=== PATIENT | female | born 1975 | race Caucasian/White ===

== ENCOUNTER → 2019-08-24 13:06 | Outpatient (BNVA) | payer OTHER, SELFPAY | PROVIDERS: Referring Provider Nurse Practitioner; Visit Provider Podiatrist Foot & Ankle Surgery | DX: M72.2 Plantar fascial fibromatosis (principal) | CPT/HCPCS: 73630; 77077 ==

== ENCOUNTER 2019-09-09 10:25 | Outpatient (CLI) | payer OTHER, SELFPAY ==
--- NOTE | 2019-09-09 10:36 | US_ITS ---
WS: [id number] ULTRASOUND SOFT TISSUES LEFT foot HISTORY: COX'S NEUROMA COMPARISON: None available. TECHNIQUE: 2-D and color Doppler imaging is submitted. Ultrasound is directed to the plantar surface of the foot between the metatarsal heads. Compression i s utilized. Hypoechoic mass measuring 4.0 x 1.8 mm along the plantar surface of the foot. This is external to the joint space between the third and fourth metatarsal heads. There is no compression or vascularity. T his appears more superficial than expected for Cox's neuroma. Also patient did not complain of erick n consistently at this location with transducer pressure or manual compression. US/US soft tissue/extremity [id number] IMPRESSION: Hypoechoic mass between the third and fourth metatarsal heads. Appears very sup erficial to be associated with the interdigital nerve. Also pain was not elicit ed with compression of this nodule. Suspect this could be an area of fibrosis. If not this is an atypical peripheral position for a neuroma.
== END 2019-09-09 10:26 | disposition home or self-care (01) ==
LOC: RAD 10:28
PROVIDERS: PCP Nurse Practitioner; Visit Provider Podiatrist Foot & Ankle Surgery
DX: G57.62 Lesion of plantar nerve, left lower limb (principal)
CPT/HCPCS: 76882

== ENCOUNTER → 2019-11-11 15:12 | Outpatient (BNVA) | payer OTHER, SELFPAY | PROVIDERS: PCP Nurse Practitioner; Visit Provider Family Medicine | DX: S82.64XA Nondisplaced fracture of lateral malleolus of right fibula, initial encounter for closed fracture (principal); X58.XXXA Exposure to other specified factors, initial encounter | CPT/HCPCS: 73610 ==

== ENCOUNTER → 2019-11-18 08:27 | Outpatient (BNVA) | payer OTHER, SELFPAY | PROVIDERS: PCP Nurse Practitioner; Referring Provider Nurse Practitioner; Visit Provider Podiatrist Foot & Ankle Surgery | DX: S82.401A Unspecified fracture of shaft of right fibula, initial encounter for closed fracture (principal); X58.XXXA Exposure to other specified factors, initial encounter | CPT/HCPCS: 73610 ==

== ENCOUNTER → 2019-12-15 14:12 | Outpatient (BNVA) | payer OTHER, SELFPAY | PROVIDERS: PCP Nurse Practitioner; Visit Provider Podiatrist Foot & Ankle Surgery | DX: S82.401A Unspecified fracture of shaft of right fibula, initial encounter for closed fracture (principal); M25.571 Pain in right ankle and joints of right foot; X58.XXXA Exposure to other specified factors, initial encounter | CPT/HCPCS: 73610 ==

== ENCOUNTER 2019-12-15 15:23 | Outpatient (CLI) | payer OTHER, SELFPAY | END 2019-12-15 15:24 | disposition home or self-care (01) | LOC: SPT 15:24 | PROVIDERS: PCP Nurse Practitioner; Visit Provider Podiatrist Foot & Ankle Surgery | DX: Z46.89 Encounter for fitting and adjustment of other specified devices (principal); S82.891D Other fracture of right lower leg, subsequent encounter for closed fracture with routine healing; X58.XXXD Exposure to other specified factors, subsequent encounter | CPT/HCPCS: L1902 ==

== ENCOUNTER → 2020-01-05 13:34 | Outpatient (BNVA) | payer OTHER, SELFPAY | PROVIDERS: PCP Nurse Practitioner; Visit Provider Podiatrist Foot & Ankle Surgery | DX: S82.401A Unspecified fracture of shaft of right fibula, initial encounter for closed fracture (principal); X58.XXXA Exposure to other specified factors, initial encounter | CPT/HCPCS: 73610 ==

== ENCOUNTER → 2020-02-03 11:13 | Outpatient (BNVA) | payer OTHER, SELFPAY | PROVIDERS: PCP Nurse Practitioner; Visit Provider Podiatrist Foot & Ankle Surgery | DX: S99.911A Unspecified injury of right ankle, initial encounter (principal); X58.XXXA Exposure to other specified factors, initial encounter | CPT/HCPCS: 73610 ==

== ENCOUNTER 2020-02-05 07:58 | Outpatient (CLI) | payer OTHER, SELFPAY ==
--- NOTE | 2020-02-05 14:24 | PFTS_ITS ---
Date of Study:02/05/20 Date of Dictation: MECHANICS: Forced vital capacity (FVC) is normal. Forced expiratory volume in one second (FEV1) is normal. FEV1/FVC is normal. FLOW VOLUME LOOP: Mild scooping likely secondary to small airways disease. LUNG VOLUMES: Total lung capacity (TLC) is normal. Residual volume (RV) is elevated. DIFFUSING CAPACITY FOR CARBON MONOXIDE: Normal. INTERPRETATION: The pulmonary function tests are normal. There is no significant postbronchodilator response. The flow volume loop is consistent with small airways disease. The lung volumes are consistent with air trapping. Gas exchange (DLCO) is normal. MTDD
--- NOTE | 2020-02-05 14:34 | PFTS_ITS ---
Date of Study:02/16/20 Date of Dictation: MECHANICS: Forced vital capacity (FVC) is normal. Forced expiratory volume in one second (FEV1) is normal. FEV1/FVC is normal. FLOW VOLUME LOOP: Mild scooping patient at lower lung volumes LUNG VOLUMES: Total lung capacity (TLC) is normal. Residual volume (RV) is increased. DIFFUSING CAPACITY FOR CARBON MONOXIDE: Normal. INTERPRETATION: The pulmonary function tests are normal. There was improvement in postbronchodilator spirometry with complete normalization of the FEV1. However, this did not reach steady state of significance. The total lung capacity is normal, there is elevation of residual volume likely secondary to small airways disease. Gas exchange (DLCO) is normal. MTDD
== END 2020-02-05 07:59 | disposition home or self-care (01) ==
PROVIDERS: PCP Nurse Practitioner; Visit Provider Internal Medicine Critical Care Medicine
DX: J45.909 Unspecified asthma, uncomplicated (principal)
CPT/HCPCS: 94060; 94726; 94729; J7611

== ENCOUNTER → 2020-03-08 13:26 | Outpatient (BNVA) | payer OTHER, SELFPAY | PROVIDERS: PCP Nurse Practitioner; Visit Provider Podiatrist Foot & Ankle Surgery | DX: M25.571 Pain in right ankle and joints of right foot (principal); S82.401A Unspecified fracture of shaft of right fibula, initial encounter for closed fracture; S82.891A Other fracture of right lower leg, initial encounter for closed fracture | CPT/HCPCS: 73610 ==

== ENCOUNTER → 2020-03-22 15:12 | Outpatient (BNVA) | payer OTHER, SELFPAY | PROVIDERS: PCP Nurse Practitioner; Visit Provider Podiatrist Foot & Ankle Surgery | DX: S99.912A Unspecified injury of left ankle, initial encounter (principal) | CPT/HCPCS: 73610 ==

== ENCOUNTER 2020-04-05 10:25 | Outpatient (CLI) | payer OTHER, SELFPAY ==
--- NOTE | 2020-04-05 10:37 | XRR_ITS ---
PROCEDURE INFORMATION: Exam: XR Right Knee Exam date and time: 04/05/2020 10:51 AM Age: 44 years old Clinical indication: Condition or disease; Arthritis; Type not specified; Knee; Right TECHNIQUE: Imaging protocol: XR Right knee. Views: 3 views. COMPARISON: No relevant prior studies available. FINDINGS: Bones/joints: No acute osseous pathology. Anatomic alignment. Soft tissues: Unremarkable. XR/XR knee RT 3V* [id number] IMPRESSION: No acute osseous pathology.
== END 2020-04-05 10:26 | disposition home or self-care (01) ==
LOC: RAD 10:28
PROVIDERS: PCP Nurse Practitioner; Visit Provider Orthopaedic Surgery
DX: M13.861 Other specified arthritis, right knee (principal)
CPT/HCPCS: 73562

== ENCOUNTER → 2020-04-06 14:18 | Outpatient (BNVA) | payer OTHER, SELFPAY | PROVIDERS: PCP Nurse Practitioner; Visit Provider Podiatrist Foot & Ankle Surgery | DX: S82.891A Other fracture of right lower leg, initial encounter for closed fracture (principal); S82.401A Unspecified fracture of shaft of right fibula, initial encounter for closed fracture; M25.571 Pain in right ankle and joints of right foot; S82.891D Other fracture of right lower leg, subsequent encounter for closed fracture with routine healing; S82.891G Other fracture of right lower leg, subsequent encounter for closed fracture with delayed healing | CPT/HCPCS: 73610 ==

== ENCOUNTER → 2020-06-02 14:43 | Outpatient (BNVA) | payer OTHER, SELFPAY | PROVIDERS: PCP Nurse Practitioner; Visit Provider Podiatrist Foot & Ankle Surgery | DX: S82.401A Unspecified fracture of shaft of right fibula, initial encounter for closed fracture (principal); M25.571 Pain in right ankle and joints of right foot; S82.891A Other fracture of right lower leg, initial encounter for closed fracture; S82.891D Other fracture of right lower leg, subsequent encounter for closed fracture with routine healing; S82.891G Other fracture of right lower leg, subsequent encounter for closed fracture with delayed healing; T14.8XXA Other injury of unspecified body region, initial encounter | CPT/HCPCS: 73610 ==

== ENCOUNTER 2020-06-15 06:00 | Outpatient (RCR) | payer OTHER, SELFPAY | END 2020-07-04 23:59 | disposition home or self-care (01) | LOC: GPT 06:00 | PROVIDERS: PCP Nurse Practitioner; Referring Provider Podiatrist Foot & Ankle Surgery; Visit Provider Podiatrist Foot & Ankle Surgery | DX: S82.402D Unspecified fracture of shaft of left fibula, subsequent encounter for closed fracture with routine healing (principal); X58.XXXD Exposure to other specified factors, subsequent encounter | CPT/HCPCS: 97110; 97112; 97116; 97140; 97161; 97530; 97760 ==

== ENCOUNTER 2020-07-05 06:00 | Outpatient (RCR) | payer OTHER, SELFPAY | END 2020-08-04 23:59 | disposition home or self-care (01) | LOC: GPT 06:00 | PROVIDERS: PCP Nurse Practitioner; Referring Provider Podiatrist Foot & Ankle Surgery; Visit Provider Podiatrist Foot & Ankle Surgery | DX: S82.402D Unspecified fracture of shaft of left fibula, subsequent encounter for closed fracture with routine healing (principal); X58.XXXD Exposure to other specified factors, subsequent encounter | CPT/HCPCS: 97110; 97112; 97760 ==

== ENCOUNTER 2020-07-22 13:14 | Outpatient (CLI) | payer OTHER, SELFPAY ==
--- NOTE | 2020-07-22 13:27 | XR_ITS ---
WS: [id number] Bone mineral density performed on a OQVestir, 07/22/2020 Clinical data: FREQUENT FRACTURES Findings: The first 4 lumbar vertebral bodies demonstrated the bone mineral density of 1.056 g/cm2 for a young adult T score of -1.0. Measurement of the left hip reveals a bone mineral density of 0.916 g/cm2 with a young adult T score of -0.7. Measurement of the right hip reveals the bone mineral density of 0.937 g/cm2 for young adult T score of -0.6. XR/XR DEXA axial skeleton* [id number] Impression: The bone mineral density of the lumbar spine and both hips is normal.
== END 2020-07-22 13:15 | disposition home or self-care (01) ==
LOC: RADWPI 13:18
PROVIDERS: PCP Nurse Practitioner; Visit Provider Nurse Practitioner
DX: Z01.89 Encounter for other specified special examinations (principal)
CPT/HCPCS: 77080

== ENCOUNTER 2020-08-05 06:00 | Outpatient (RCR) | payer OTHER, SELFPAY | END 2020-09-04 23:59 | disposition home or self-care (01) | LOC: GPT 06:00 | PROVIDERS: PCP Nurse Practitioner; Referring Provider Podiatrist Foot & Ankle Surgery; Visit Provider Podiatrist Foot & Ankle Surgery | DX: S82.402D Unspecified fracture of shaft of left fibula, subsequent encounter for closed fracture with routine healing (principal); X58.XXXD Exposure to other specified factors, subsequent encounter; M76.72 Peroneal tendinitis, left leg | CPT/HCPCS: 97110; 97112 ==

== ENCOUNTER 2020-08-10 16:05 | Outpatient (CLI) | payer OTHER, SELFPAY ==
[2020-08-10 16:38] LABS: Basophils % 0.4 %; Eosinophils # 0.1 10^3/uL (0.0-0.8); Eosinophils % 2.2 %; Hematocrit 38.8 % (37.0-47.0); Hemoglobin 12.3 g/dL (11.5-15.3); Lymphocytes % 41.4 %; Mean Corpuscular HGB Conc 31.7 g/dL (30.0-36.0); Mean Corpuscular Hemoglobin 29.8 pg (28.0-34.0); Mean Corpuscular Volume 93.9 fL (81-99); Mean Platelet Volume 9.9 fL (7.4-10.4); Monocytes # 0.4 10^3/uL (0.2-0.9); Monocytes % 7.8 %; Neutrophils # 2.35 10^3/uL (1.8-7.7); Nucleated Red Blood Cells % 0 %; Platelet Count 284 10^3/cmm (130-400); Red Blood Count 4.13 10^6/uL (4.1-5.3); White Blood Count 4.9 10^3/uL (4.0-10.0)
== END 2020-08-10 16:06 | disposition home or self-care (01) ==
PROVIDERS: Internal Medicine Critical Care Medicine; PCP Nurse Practitioner; Visit Provider Orthopaedic Surgery
DX: J45.909 Unspecified asthma, uncomplicated (principal)
CPT/HCPCS: 85025

== ENCOUNTER 2020-10-10 11:19 | Outpatient (CLI) | payer OTHER, SELFPAY ==
--- NOTE | 2020-10-10 12:07 | XR_ITS ---
WS: [id number] CHEST 2 VIEWS HISTORY: Shortness of breath COMPARISON: None available. Lungs: Mild pulmonary hyperexpansion. No pneumonia. Normal vasculature. Cardiac size: Normal. Mediastinum/Aorta: Normal mediastinum. Bones: Normal. XR/XR chest 2V* [id number] IMPRESSION: Mild hyperexpansion. Otherwise negative.
== END 2020-10-10 11:20 | disposition home or self-care (01) ==
LOC: RAD 11:24 → RADWPI 11:52
PROVIDERS: PCP Nurse Practitioner; Visit Provider Internal Medicine Critical Care Medicine
DX: R06.02 Shortness of breath (principal)
CPT/HCPCS: 71046

== ENCOUNTER → 2020-10-28 15:01 | Outpatient (BNVA) | payer OTHER, SELFPAY | PROVIDERS: PCP Nurse Practitioner; Visit Provider Nurse Practitioner Women's Health | DX: Z01.419 Encounter for gynecological examination (general) (routine) without abnormal findings (principal); N91.1 Secondary amenorrhea | CPT/HCPCS: 82670; 83001; 84146; 84439; 84443 ==

== ENCOUNTER 2020-11-02 12:00 | Outpatient (CLI) | payer OTHER, SELFPAY | END 2020-11-02 12:01 | disposition home or self-care (01) | LOC: SLEEP 11-07 16:01 | PROVIDERS: PCP Nurse Practitioner; Visit Provider Internal Medicine Critical Care Medicine | DX: G47.10 Hypersomnia, unspecified (principal); R06.83 Snoring; R53.83 Other fatigue | CPT/HCPCS: 73630; 76830; G0399 ==

== ENCOUNTER 2020-11-08 09:32 | Outpatient (CLI) | payer OTHER, SELFPAY ==
--- NOTE | 2020-11-08 09:30 | USCV_ITS ---
Goivanna Barker Age: 45 Gender: F : 1975 Exam Date: 11/08/2020 10:04 Ordering Phys: Lourdes Collins MD Technologist: Norma Glass [place] [facility] [place]: SOB, ASTHMA, FAM HX BP: 112 / 85 HR: 75 Rhythm: Sinus Technical Quality: Fair MEASUREMENTS (Male / Female) Normal Values 2D ECHO LV Diastolic Diameter PLAX 4.5 cm 4.2 - 5.9 / 3.9 - 5.3 cm LV Systolic Diameter PLAX 3.4 cm LV Chamber Size 4.3 cm IVS Diastolic Thickness 1.3 cm 0.6 - 1.0 / 0.6 - 0.9 cm IVS Systolic Thickness 1.6 cm LVPW Diastolic Thickness 0.9 cm 0.6 - 1.0 / 0.6 - 0.9 cm LVPW Systolic Thickness 1.2 cm RV Chamber Size 2.0 cm LVOT Diameter 2.0 cm LV Ejection Fraction 2D Teich 49.1 % LV Ejection Fraction MOD 2C 61.2 % LV Ejection Fraction 2C AL 64.1 % LA Diameter 2.9 cm LA Width 2.7 cm LA Height 3.7 cm RA Width 1.7 cm RA Height 2.6 cm Aorta at Sinotubular Diameter 2.6 cm M-MODE LV Diastolic Diameter MM 5.4 cm 4.2 - 5.9 / 3.9 - 5.3 cm LV Systolic Diameter MM 3.9 cm LV Ejection Fraction MM Teich 53.9 % IVS Diastolic Thickness MM 0.6 cm 0.6 - 1.0 / 0.6 - 0.9 cm IVS Systolic Thickness MM 1.0 cm LVPW Diastolic Thickness MM 0.7 cm 0.6 - 1.0 / 0.6 - 0.9 cm LVPW Systolic Thickness MM 1.2 cm Aortic Annulus Diameter 3.1 cm LA Ao Ratio MM 1.0 MV E Point Septal Separation 1.0 cm DOPPLER AV Peak Velocity 99.0 cm/s LVOT Peak Velocity 102.0 cm/s AV Area Cont Eq vti 2.7 cm squared AV Area Cont Eq pk 3.2 cm squared MV Area PHT 3.6 cm squared Mitral E to A Ratio 0.9 MV E' Velocity 33.0 cm/s Mitral E to MV E' Ratio 6.7 Mitral E to LV E' Lateral Ratio 5.4 Mitral E to LV E' Septal Ratio 9.0 TV Peak E Velocity 65.0 cm/s Right Atrial Pressure 3.0 mmHg PV Peak Velocity 84.0 cm/s RV Acceleration Time 0.1 s RV Ejection Time 0.3 s RV AcT/ET 0.4 FINDINGS Left Ventricle Normal left ventricular cavity size. Normal left ventricular systolic function. No regional wall motion abnormalities. Left ventricular ejection fraction is estimated at 55 %. Grade I/IV diastolic dysfunction (abnormal relaxation filling pattern), normal to mildly elevated filling pressures. Right Ventricle The right ventricle is normal in size and function. RVSP could not be calculated due to incomplete tricuspid regurgitation velocity profile. Right Atrium The right atrium is normal in size. Left Atrium The left atrium is normal in size. Mitral Valve Structurally normal mitral valve without significant stenosis or prolapse. There is no mitral regurgitation. Aortic Valve Structurally normal trileaflet aortic valve. No aortic valve stenosis. Trace aortic valve regurgitation. Tricuspid Valve Structurally normal tricuspid valve without significant stenosis or regurgitation. Pulmonic Valve Structurally normal pulmonic valve without significant stenosis. There is no pulmonic regurgitation. Pericardium Normal pericardium without effusion. Aorta Normal ascending aorta dimension. CONCLUSIONS 1-Normal left ventricular cavity size. Normal left ventricular systolic function. No regional wall motion abnormalities. Left ventricular ejection fraction is estimated at 55 %. Grade I/IV diastolic dysfunction (abnormal relaxation filling pattern), normal to mildly elevated filling pressures. 2-Structurally normal trileaflet aortic valve. No aortic valve stenosis. Trace aortic valve regurgitation. 3-There is no pericardial effusion. 4-The right ventricle is normal in size and function. RVSP could not be calculated due to incomplete tricuspid regurgitation velocity profile. 5-Right atrial pressure is around 5 mm of mercury. 6-There are no prior echocardiogram studies to compare. Pau Ramos MD (Electronically Signed) Final Date: 08 November 2020 19:09 S
== END 2020-11-08 09:33 | disposition home or self-care (01) ==
PROVIDERS: PCP Nurse Practitioner; Visit Provider Internal Medicine Critical Care Medicine
DX: R06.02 Shortness of breath (principal); J45.909 Unspecified asthma, uncomplicated; I08.2 Rheumatic disorders of both aortic and tricuspid valves
CPT/HCPCS: 93306

== ENCOUNTER 2021-03-22 14:17 | Outpatient (CLI) | payer OTHER, SELFPAY ==
--- NOTE | 2021-03-22 14:22 | CT_ITS ---
WS: [id number] CT pelvis TECHNIQUE: Noncontrast CT of the pelvis with coronal and sagittal reformatted images. CLINICAL INFORMATION: LEFT INGUINAL PAIN COMPARISON: None. DLP: 686.[address] scans at [facility] use at least one of these dose optimization techniques: automat ed exposure control; mA and/or kV adjustment per patient size (includes targeted exams where dose is matched to clinical indication); or iterative reconstruction. FINDINGS: Low-attenuation nodule in the area of concern in the left groin measuring 1.6 x 1.7 CM. Differential considerations include small seroma or enlarged lymph node. Recommend further evaluation with ultraso und for better characterization. Tiny fat-containing umbilical hernia. Normal lymph nodes in the right inguinal canal. Mild sigmoid constipation. Mild disc space narrowing L4-5 and L5-S1. CT/CT pelvis wo con [id number] IMPRESSION: 1. Low-attenuation ovoid fluid collection or nodule in the area of concern lef t groin measuring 1.6 x 1.7 cm. Differential considerations include small serom a versus enlarged lymph node. Recommend further evaluation with ultrasound for better characterization.
== END 2021-03-22 14:18 | disposition home or self-care (01) ==
PROVIDERS: PCP Nurse Practitioner; Visit Provider Nurse Practitioner
DX: R10.32 Left lower quadrant pain (principal)
CPT/HCPCS: 72192

== ENCOUNTER 2021-05-22 09:44 | Outpatient (CLI) | payer OTHER, SELFPAY ==
--- NOTE | 2021-05-22 09:51 | US_ITS ---
WS: [id number] INDICATION: Left groin pain TECHNIQUE: Ultrasound soft tissue left inguinal canal FINDINGS: Comparison CT pelvis March 22, 2021. Ultrasound demonstrates anechoic fluid collection in the area of concern measuring 1.5 x 0.7 CM. This has a simple appearance and likely represents a smal l seroma. No other abnormalities. US/US soft tissue/extremity [id number] IMPRESSION: Small simple fluid collection likely seroma left inguinal canal horace suring 1.5 x 0.7 cm
== END 2021-05-22 09:45 | disposition home or self-care (01) ==
PROVIDERS: PCP Nurse Practitioner; Visit Provider Nurse Practitioner
DX: R10.32 Left lower quadrant pain (principal)
CPT/HCPCS: 76882

== ENCOUNTER → 2021-06-26 09:01 | Outpatient (BNVA) | payer OTHER, SELFPAY | PROVIDERS: PCP Nurse Practitioner; Visit Provider Surgery | DX: Z20.822 Contact with and (suspected) exposure to COVID-19 (principal); Z11.52 Encounter for screening for COVID-19 | CPT/HCPCS: 87635 ==

== ENCOUNTER 2021-07-03 08:46 | Observation (INO) | payer OTHER, SELFPAY ==
[2021-06-28 11:50] VITALS: BMI 23.6
[2021-07-03] VITALS (21 sets, daily range): BP systolic 103–140; BP diastolic 59–92; PULSE 60–91; RESP 14–20; TEMP 36.1–37.1; O2SAT 95–100
--- NOTE | 2021-07-03 06:20 | W.PM.OPSUD ---
Surgery/Procedure H&P Update DATE OF PROCEDURE: July 03, 2021 DATE H&P PERFORMED: 06/22/21 H&P UPDATE INFORMATION: I have reviewed H&P completed within last 30 days, I have examined patient prior to procedure and Changes to prior documentation as noted here CHANGES TO PREVIOUS DOCUMENTATION: Documents have been received from the [place] and reviewed by me, but unfortunately does not have the details of the operative intervention. Patient is aware of that and is still interested to proceed accordingly. Understanding that there is a potential possibility that mesh will not be placed if the fluid in the wound bed looks to be infected. PREOP DIAGNOSIS: Recurrent left groin hernia PRIMARY INDICATION FOR PROCEDURE: The same PLANNED PROCEDURE: Operation Date: 07/03/21 07:00 Proposed Procedures p open Inguinal Hernia Repair w/ Mesh [id number] R10.32(Left) - Bhargav Arias MD
[2021-07-03] MEDS: sodium chloride 0.9% 1,000 ML 30 ML IV (06:38)
[2021-07-03] MEDS: scopolamine 1.5 Patch 1 PATCH TRANSDERMA (06:48)
[2021-07-03] MEDS: acetaminophen 1,000 MG/100 ML PIGGYBACK 400 MG IV (06:50)
[2021-07-03] MEDS: lidocaine 2% INJ 20 mL INJECTION (07:21)
--- NOTE | 2021-07-03 08:32 | P.OP_ITS ---
Operative Report Date of procedure: July 03, 2021 Pre-op Diagnosis: Recurrent left groin hernia Post-op diagnosis: same Procedure Done: 1-Left groin hernia repair primarily 2-Left femoral vein(venotomy) repair using Prolene 5/0 Implants: Pieces of Surgicel Specimens removed/disposition: Hernial sac and contents Surgeon: Bhargav Arias Java Swing Developer: Surgical aurora Alexander Circulating nurse Valery Thayer Anesthesia: General (GETA aircraft instrument engineer Rm Martínez) and Local (Lidocaine 2%) Estimated blood loss (mL): 300 IV fluids (mL): 900 Condition: stable Disposition: observation Procedure: Left groin hernia repair Patient was identified in the holding area and left groin was marked by myself, patient was asked to void urine prior to surgery ,patient was taken to the operating room were she was placed in supine position,antibiotic was given with induction, endotracheal tube was placed per anesthesia, prep and drape of the l left groin and lower abdomen was done under the usual sterile technique. Timeout was done verifying the patient's name/date of /planned procedure destination after the procedure, all were in agreement. SCDs confirmed to be functioning, preoperative antibiotics administered per protocol, and beta dennis protocol was confirmed. I started with a left groin incision 1-1/2 finger above the inguinal ligament towards the pubic tubercle which is coinciding with the previous scar, used 15 blade knife skin incision, continued to dissect using Bovie to subcutaneous Sca rpa's down to the external oblique aponeurosis, large left femoral hernia was identified in the form of preperitoneal fat, the site of herniation the lower part of the inguinal ligament was incised I was able to dissect the hernia and the sac was also excised and sent for pathology otherwise the remaining viable content was pushed inside the abdominal cavity without complication. Extensive scar tissue was noted in the left groin area from previous repair mesh placement.During dissection inadvertent venotomy to the common femoral vein was encountered, and I was able to apply vascular clamps proximal and distal for appropriate control and repair the venous tear with 5-0 Prolene under direct visualization using interrupted sutures without encroaching on the posterior aspect of the vein or the femoral artery(there was no vascular service available at that time). Hemostasis was achieved suction irrigation was done. At that point I asked the anesthesiologist to get the patient 3000 units of heparin subcu. I elected at this point to close the fascial defect primarily and avoid placement of the mesh which 2-0 Prolene was used Intraoperative Doppler was used had a good flow to the vein and the artery. Followed by placement of Surgicel.Closure of the subcutaneous layer on top of the venous repair using interrupted 2-0 silk sutures, followed by 2-0 Vicryl, 3- 0 Vicryl and 4-0 Monocryl Dressing was then applied in the form of Dermabond. Counts of instruments, sponges and needles were completed at the end of the procedure. After I scrubbed out the patient's foot was warm and had good dorsalis pedis artery palpation in comparison to the right foot. Patient tolerated the procedure well and continued to be stable and was taken to the recovery area after extubation I was present for the whole entire procedure
[2021-07-03] MEDS: fentaNYL 50 mcg/mL INJ 2mL IVP ×2 (09:11→09:21)
[2021-07-03] MEDS: sodium chloride 0.9% 1,000 ML 100 ML IV (09:30)
--- NOTE | 2021-07-03 09:59 | PC.NURSE ---
Dr Arias called to clarify orders. stated that since our department does not have telemetry, that simple telemetry,(BP, pulse, pulse ox) will be sufficient
--- NOTE | 2021-07-03 10:09 | PC.NURSE ---
Dr Arias called to clarify orders. stated that since our department does not have telemetry, that simple telemetry,(BP, pulse, pulse ox) will be sufficient .
[2021-07-03] MEDS: HYDROcodone-acetaminophen 5-325 mg Tablet 1 TAB PO ×2 (10:36→20:53)
[2021-07-03] MEDS: famotidine 20 mg/2 mL INJ IVP ×2 (10:37→20:53)
--- NOTE | 2021-07-03 11:19 | USCV_ITS ---
Giovanna Barker Age: 45 Gender: F : 1975 Exam Date: 07/03/2021 14:23 Ordering Phys: Bhargav Arias MD Technologist: DAJA Exam Location: [facility] – [place] Indication: POST HERNIA REPAIR CHECK FOR CLOT AND PSEUDO AT COMMON FEMORAL Findings The common femoral vein and the common femoral arterty were evaluated today. There does not appear to be thrombus or a pseudo aneurysm at this time. Conclusions Normal doppler of the left common femoral and femoral vein. No thrombus or occlusion. No pseudoaneurysm. Normal Common femoral arteyr and SFA. D/w Dr. Ivan Loera MD (Electronically Signed) Final Date: 03 July 2021 15:23 S
--- NOTE | 2021-07-03 13:47 | ANE.PACU2 ---
Inpatient post-anesthesia follow up: Airway intact: Yes Vital signs: Temperature 97.8 F Pulse Rate 78 Respiratory Rate 15 Blood Pressure 111/75 Pulse Oximetry 97 Oxygen Delivery Me thod Room Air Oxygen Flow Rate 8 Fraction of Inspir ed Oxygen Hydration adequate: Yes Nausea and vomiting: No Pain level: 2 Mental status: Baseline
[2021-07-03] MEDS: HYDROmorphone 1 mg/mL INJ 1 mL 0.5 MG IVP (14:51)
--- NOTE | 2021-07-03 16:18 | PM.PN ---
Subjective Subjective: Interval history: Patient overall feels well and tolerating p.o. intake my pain medication has been adjusted and Dilaudid IV was added. Medications: Reviewed: Yes Vitals/I&O/Wt Last Vital Signs Temp 97.8 F 07/03/21 10:55 Pulse 78 07/03/21 10:55 Resp 15 07/03/21 14:51 BP 111/75 07/03/21 10:55 Pulse Ox 96 07/03/21 14:51 07/03/21 07/03/21 07/03/21 06:59 14:59 22:59 Intake Total 100 / 100 1060 / 1060 Output Total 300 / 300 Balance 100 / 100 760 / 760 Physical Exam Narrative: EXAM NARRATIVE: Patient is conscious alert oriented X3 BMI 24 Head and neck examination PERRLA no masses no cervical lymphadenopathy no jaundice Abdomen nontender nondistended soft no organomegaly guarding or rigidity/no signs of peritonitis Left groin examination was done in the presence of forming chief contract officer nursing staff Garima No evidence of swelling Intact distal pulsation of the left dorsalis pedis artery No neurological deficits Foot is warm Extremities no cyanosis no clubbing no edema A&P Assessment and plan (1) Status post left inguinal hernia repair: Assessment 45 years old female patient status post left open inguinal hernia repair and venotomy repair 07/03/2021 Plan Will drop IV fluids to 50 mL/h Continue heparin subcu as scheduled Vascular study requested by me of the left groin that showed: Findings The common femoral vein and the common femoral arterty were evaluated today. There does not appear to be thrombus or a pseudo aneurysm at this time. Conclusions Normal doppler of the left common femoral and femoral vein. No thrombus or occlusion. No pseudoaneurysm. Normal Common femoral arteyr and SFA. Continue p.o. intake Check groin every couple of hours Follow on a.m. labs Assurance and education All questions have been answered and all concerns have been addressed to patient's satisfaction. Status: Acute Attestations Medical Necessity Statement*: Patient requiring observation status Time Spent in Patient Care: 16 - 35 minutes (>than 50% of time spent in counselling and/or direct pt care on unit). Coding Level of Care Code Acute Rehab Office Coordinator for Chg Fwd Diagnoses Status post left inguinal hernia repair Z98.890; Z87.19
[2021-07-03] MEDS: psyllium powder Pkt 1 PACKET PO (18:22)
[2021-07-03] MEDS: heparin 5,000 unit/mL INJ 1 mL 5000 UNIT SUBCUT (20:53)
[2021-07-03] MEDS: sodium chloride 0.9% 1,000 ML 50 ML IV (23:28)
[2021-07-04] MEDS: HYDROcodone-acetaminophen 5-325 mg Tablet 1 TAB PO ×2 (02:55→08:31)
[2021-07-04] MEDS: heparin 5,000 unit/mL INJ 1 mL 5000 UNIT SUBCUT ×2 (04:03→11:03)
[2021-07-04 04:05] VITALS: BP 107/70; PULSE 65; RESP 15; TEMP 36.7; O2SAT 95
[2021-07-04 05:33] LABS: Hematocrit 33.4 % (37.0-47.0)
[2021-07-04 05:48] LABS: Anion Gap 9.3 (5-19); Blood Urea Nitrogen 16 mg/dL (6-20); Calcium 8.7 mg/dL (8.5-10.5); Carbon Dioxide 28 mmol/L (22-29); Chloride 108 mmol/L (98-107); Glomerular Filtration Rate 108.1 mL/min (90-130); Glucose 100 mg/dL (65-115); Osmolality Calculated 293 mOsm/kg (285-295); Potassium 4.3 mmol/L (3.5-5.1); Sodium 141 mmol/L (136-145)
--- NOTE | 2021-07-04 07:56 | PM.SDS ---
Short Stay Summary Providers Date of Admit/Discharge: 07/04/21 Attending Provider: Bhargav Arias MD Primary Care Provider: MADELEINE Hnery Chief Complaint: left groin pain HPI History of Present Illness This is a pleasant 45 years old female patient referred to my practice with history of ongoing left groin pain and numbness of the left thigh particularly the medial aspect. Status post left open inguinal hernia repair before 10 years with mesh placement in [facility]. Attempt was done to obtain operative report was not successful unfortunately. About a year or year and a half ago started to have constant aching dull and sharp left inguinal pain. Nothing seems to make it better except for application of heat pads.And it is just getting worse. Patient undergone further work-up in the form of soft tissue ultrasound that showed; 05/22/2021 Small simple fluid collection likely seroma left inguinal canal measuring 1.5 x 0.[address] scan of the pelvis that was done back in 03/22/2021 that showed; Low-attenuation ovoid fluid collection or nodule in the area of concern left groin measuring 1.6 x 1.7 cm. Differential considerations include small seroma versus enlarged lymph node. Recommend further evaluation with ultrasound for better characterization. Patient is referred to my practice and she is escorted by her significant other complaining of constant left groin pain. Review of Systems General: Reports: 10 or more systems reviewed and unremarkable except in HPI and below Home Meds/Allergies Home Medications and Allergies Home Medications Medication Instructions Recorded Confirmed Type tiotropium bromide 1.25 2 puff INHALATION DAILY 11/11/19 06/28/21 History mcg/actuation mist for inhalation budesonide-formoterol HFA 160 2 puff INHALATION BID 06/13/20 06/28/21 History mcg-4.5 mcg/actuation aerosol inhaler famotidine 40 mg tablet 40 mg PO BID 05/15/21 06/28/21 History Allergies Allergy/AdvReac Type Severity Reaction Status Date / Time aspirin Allergy Mild ALGY-Hives Verified 07/04/21 16:05 PFSH Acute PFSH: Medical History Asthma Chiari malformation Endometriosis (~1995) self reports surgical dx GERD (gastroesophageal reflux disease) Left groin pain No pertinent past medical history neghx: htn,dm,thyroid,dvt/pe PCP: J[place] LEVINE Premature ovarian failure Surgical History History of brain surgery (~2018) tx of chiari History of laparoscopy (~1995) History of left oophorectomy (~2014) Hx of cholecystectomy (~2009) Hx of dilation and curettage (~2008) SAB Family History Daughter Bleeding disorder Daughter with vonWillibrand Grandmother Breast cancer Paternal--dx age unknown Family/Other Breast cancer Paternal Aunt--dx age unknown Heart disease Paternal side in general Father Stroke Grandfather Stroke Paternal Other Clotting disorder Denies family history of Colon cancer Ovarian cancer Diabetes Hypercholesteremia Hypertension Uterine cancer Social History Alcohol intake: never Lives independently: Yes Marital status: service: Yes 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 History of recent travel: No Vitals/I&O/Wt Last Vital Signs Temp 98.1 F 07/04/21 04:05 Pulse 65 07/04/21 04:05 Resp 15 07/04/21 04:05 BP 107/70 07/04/21 04:05 Pulse Ox 95 07/04/21 04:05 07/03/21 07/04/21 07/04/21 22:59 06:59 14:59 Intake Total 700 / 1760 Output Total 525 / 825 925 / 1750 Balance 175 / 935 -925 / 10 Physical Exam Narrative: EXAM NARRATIVE: Patient is conscious alert oriented X3 BMI 24 Head and neck examination PERRLA no masses no cervical lymphadenopathy no jaundice Cardiac examination audible S1-S2 no murmurs no gallops no arrhythmias Chest is clear bilateral,abscence of Rhonchi or wheezes,no surgical emphysema Abdomen nontender nondistended soft no organomegaly guarding or rigidity/no signs of peritonitis Left groin examination was done in the presence of [facility] panel assembler nursing staff Hilda during morning rounds.No evidence of swelling of the left groin area. Incision is clean dry and intact Intact distal pulsation of the left dorsalis pedis artery.No neurological deficits Foot is warm Extremities no cyanosis no clubbing no edema Hospital Course Hospital Course Ms. Giovanna Barker is a 45 year old female undergone left open groin hernia repair primarily and was kept overnight for observation due to inadvertent venotomy that undergone repair using 5-0 Prolene. Patient overall did well and continue to be on prophylactic heparin subcu. Tolerated p.o. intake, patient continued to pass gas and has adequate urine output, other signs maintained to be stable. Lab work showed hemoglobin of 11 and hematocrit of 33.4. Able to ambulate without assistance. Earlier patient was kept complete rest in bed for 4 hours postoperatively. Patient met the appropriate criteria and clinical indication for safe discharge home. SSS Data Data Completed and Pending: Completed Studies During Hospitalization Category Date [place] [id number] Rout ine Ultrasound 07/03/21 11:19 Completed Pending at discharge Category Date Time Status Basic Metabolic P reji AM LABS Lab 07/05/21 04:00 Uncollected Basic Metabolic P reji AM LABS Lab 07/06/21 04:00 Uncollected Hemoglobin and He matocrit AM LABS Lab 07/05/21 04:00 Uncollected Hemoglobin and He matocrit AM LABS Lab 07/06/21 04:00 Uncollected Pathology: Surgic al [PTH] Routine Pth 07/03/21 08:42 Received Diagnoses at Discharge Discharge Diagnosis (1) Status post left inguinal hernia repair: Status: Chronic Discharge Plan Discharge Patient Disposition: Home Condition: Stable Prescriptions: New hydrocodone-acetaminophen 5-325 mg tablet 1 tab PO Q6H PRN (Reason: pain) Qty: 28 RF: 0 Lovenox 30 mg/0.3 mL syringe 30 mg SUBCUT DAILY 10 Days RF: 0 Continued (DME) sole support Qty: 1 RF: 0 budesonide-formoterol [Symbicort] 160-4.5 mcg/actuation HFA aerosol inhaler 2 puff inhalation BID RF: 0 fluticasone propionate [Flonase Allergy Relief] 50 mcg/actuation spray,suspension 1 spray intranasal BID Qty: 15.8 RF: 3 Spiriva Respimat 1.25 mcg/actuation mist 2 puff INHALATION DAILY RF: 0 azelastine 137 mcg (0.1 %) aerosol,spray 2 spray INTRANASAL BID 90 Days Qty: 30 RF: 3 (DME) ASO ankle brace Qty: 1 RF: 0 (DME) Custom Functional orthotic See Rx Instructions .Route .MEDSUPPLY Qty: 1 RF: 0 (DME) Custom Molded Functional Orthotics See Rx Instructions .Route .MEDSUPPLY Qty: 1 RF: 0 famotidine 40 mg tablet 40 mg PO BID RF: 0 Discharge Orders: Discharge Order (Routine); Ordered 07/04/21 Ordered By: Bhargav Arias Referrals: Bhargav Arias MD [Physician] - 07/10/21 9:15 am (Return to surgery office in 1 week) Discharge Diet: Advance as tolerated Discharge Activity: Limit activity as instructed Patient Instructions: Hydrocodone/Acetaminophen (By mouth), Surgical Site Infections (GEN), Inguinal Hernia Repair (GEN), OB Discharge Report, OB Food/Drug Interaction Guide, Opioid Safety Activity Restrictions/Additional Instructions: Post discharge instructions: 1. Patient can shower after 48 hours from surgery. Do not soak in bathtub, swimming pool or hot tub for 4 weeks after surgery. 2. Leave incisions open to air, do not apply triple antibiotic ointment or medications on the incisions. 3. Up and walking as tolerated 4. Do not lift more than 5 pounds first 2 weeks after surgery and not more than 25 pounds 6 to 8 weeks after surgery. Driving 5. Do not operate heavy machinery or drive while using pain medications 6. Lovenox shots to start tomorrow 7. Avoid strenuous exercises or stretch of the extremities 8. Avoid bending over or twisting at the torso level Diet Advance diet as tolerated Avoid constipation by taking stool softeners example of Metamucil or Benefiber Ample of hydration Pain control Patient was given a prescription for hydrocodone and was encouraged to take stool softeners to avoid constipation and straining. Can apply ice packs to the left groin Breathing Patient was encouraged to take deep breaths Appropriate education was given to the patient about starting the Lovenox administration tomorrow subcutaneously. Call the office at [phone] during office hours or go the Emergency Room after hours for - ?Fever to 100.4 or greater ?Shaking chills ?Pain that increases over time ?Redness, warmth, or pus draining from incision sites ?Persistent nausea or inability to take in liquids Any potential swelling of the left groin area or increase in the girth of the left thigh or lower extremity Attestations Medical Necessity Statement*: Observation status for perioperative care Time Spent in Patient Care*: greater than 30 min Specific Discharge Activities: Specific discharge activities: educating patient and educating and/or supporting family/caregiver Status at Discharge: Cognitive status at discharge: cognitively intact, Behavioral status at discharge: cooperative, Functional status at discharge: independent ambulation Overall status at discharge: patient is progressing back to baseline Quality Metrics Clinical Quality Measures: During this hospital stay, did patient experience: None Coding Level of Care Code Acute Distance Education Coordinator for Ashishg Fwd Diagnoses Status post left inguinal hernia repair Z98.890; Z87.19
[2021-07-04] MEDS: famotidine 20 mg/2 mL INJ IVP (09:54)
[2021-07-04] MEDS: psyllium powder Pkt 1 PACKET PO (10:28)
[2021-07-04 11:15] VITALS: BP 109/71; PULSE 60; RESP 16; TEMP 36.7; O2SAT 97
== END 2021-07-04 11:20 | disposition home or self-care (01) ==
LOC: OBGYN 08:46
PROVIDERS: Admitting Provider Surgery; PCP Nurse Practitioner; Visit Provider Surgery
PROC: (CPT 49520; principal; 2021-07-03 07:00)
DX: K40.91 Unilateral inguinal hernia, without obstruction or gangrene, recurrent (principal); J45.909 Unspecified asthma, uncomplicated; K21.9 Gastro-esophageal reflux disease without esophagitis; Z87.19 Personal history of other diseases of the digestive system
CPT/HCPCS: 49520; 36415; 80048; 85014; 85018; 88302; 93926; 96372; G0378; J0690; J1100; J1170; J1200; J1644; J2405; J2704; J2710; J3010; J3490; J7030

== ENCOUNTER → 2021-11-09 11:39 | Outpatient (BNVA) | payer OTHER, SELFPAY | PROVIDERS: PCP Nurse Practitioner; Visit Provider Specialist | DX: G43.711 Chronic migraine without aura, intractable, with status migrainosus (principal); G47.10 Hypersomnia, unspecified | CPT/HCPCS: 99204 ==

== ENCOUNTER 2021-11-30 08:27 | Day surgery (SDC) | payer OTHER, SELFPAY ==
[2021-11-28 12:25] VITALS: BMI 27.4
[2021-11-30 08:43] VITALS: BP 121/97; PULSE 85; RESP 18; TEMP 36.1; O2SAT 97
[2021-11-30] MEDS: sodium chloride 0.9% 1,000 ML 30 ML IV (08:56)
--- NOTE | 2021-11-30 09:49 | P.HP_ITS ---
Same Day Surgery H&P Indication for Procedure/HPI DATE OF PROCEDURE: November 30, 2021 CHIEF COMPLAINT/INDICATIONFOR SURGICAL PROCEDURE: Screening colonoscopy PREOP DIAGNOSIS: Screening colonoscopy PLANNED PROCEDURE: Operation Date: 11/30/21 10:00 Proposed Procedures p Colonoscopy 52658/z12.11(Not Applicable) - Bhargav Arias MD This is a pleasant 46 years old female patient comes today for screening colonoscopy. ROS All systems have been reviewed negative except as per the above or per problem list Medications/Allergies* Home Medications Medication Instructions Recorded Confirmed Type tiotropium bromide 1.25 2 puff INHALATION DAILY 11/11/19 11/30/21 History mcg/actuation mist for inhalation (Spiriva Respimat) budesonide-formoterol HFA 160 2 puff INHALATION BID 06/13/20 11/30/21 History mcg-4.5 mcg/actuation aerosol inhaler (Symbicort) famotidine 40 mg tablet 40 mg PO BID 05/15/21 11/30/21 History sumatriptan succinate 50 mg tablet 50 mg PO Q2H PRN 08/14/21 11/30/21 History Allergies/Adverse Reactions Allergy/AdvReac Type Severity Reaction Status Date / Time aspirin Allergy Mild ALGY-Hives Verified 11/30/21 09:50 Current Medications: Generic Name Dose Route Start Last Admin Trade Name Freq PRN Reason Stop Dose Admin Sodium Chloride 1,000 mls @ 30 mls/hr 11/30/21 08:45 11/30/21 08:56 Sodium Chloride 0.9% IV 12/01/21 08:44 30 mls/hr .Q24H MILLICENT Administration Pertinent History/Comorbid Conditions* Medical History (Updated 11/09/21 @ 13:24 by Esme Gómez MD) Asthma Chiari malformation Endometriosis (~1995) self reports surgical dx GERD (gastroesophageal reflux disease) Left groin pain No pertinent past medical history neghx: htn,dm,thyroid,dvt/pe PCP: J[place] LEVINE Premature ovarian failure Surgical History (Updated 07/05/21 @ 00:02 by ) History of brain surgery (~2018) tx of chiari History of laparoscopy (~1995) History of left oophorectomy (~2014) Hx of cholecystectomy (~2009) Hx of dilation and curettage (~2008) SAB Status post left inguinal hernia repair Family History (Updated 10/28/20 @ 14:48 by Cathy Schmid APN, LEONARD) Clotting disorder Heart disease Family/Other Paternal side in general Breast cancer Grandmother Paternal--dx age unknown Family/Other Paternal Aunt--dx age unknown Bleeding disorder Daughter Daughter with vonWillibrand Stroke Father Grandfather Paternal Denies family history of Colon cancer Ovarian cancer Diabetes Hypercholesteremia Hypertension Uterine cancer Social History Smoking and tobacco status: never smoked Alcohol intake: never Lives independently: Yes Marital status: service: Yes 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
[2021-11-30] MEDS: ondansetron 2 mg/ML SDV 2 mL 4 MG IVP (09:51)
--- NOTE | 2021-11-30 09:56 | P.ANESASSM_ITS ---
Pre-Anesthetic Assessment Height/Weight: Height 1.63 m Weight 72.575 kg Temp Pulse Resp BP Pulse Ox 97.0 F L 85 18 121/97 97 11/30/21 08:43 11/30/21 08:43 11/30/21 08:43 11/30/21 08:43 11/30/21 08:43 Preop Diagnosis: Screening colonoscopy Operation Date: 11/30/21 10:00 Proposed Procedures p Colonoscopy 23899/z12.11(Not Applicable) - Bhargav Arias MD Familial anesthetic complications: Patient has hx of PONV Was Beta Stanislaw taken within 24 hours: N/A Was Clonidine taken within 24 hours: N/A Last intake: Intake Last Liquid Date 11/29/21 Last Liquid Time 21:00 Last Solid Date 11/28/21 Last Solid Time 17:00 Social No alcohol and No tobacco Exam alert, oriented x 3, clear to auscultation bilaterally and regular rate & rhythm Airway Submandibular: within normal limits Cervical ROM: Other (Has pain w/ extension ) Mallampati: Class II Dentition: full Pulmonary Asthma (severe persistent asthma hx, never hospitalized ) and Shortness of B reath CV/HEM None reported endometriosis Hepatic None reported GI Gastroesophageal Reflux Disease (Occassionally symptomatic on empty stomach. Took famotidine today) Metabolic None reported Musc/skel Osteoarthritis/DJD Neuropsych s/p Chiari malformation repair Anesthetic Plan ASA status: 2 Anesthesia: Anesthesia Evaluation, General and MAC Other: I discussed with the patient risks, goals, and benefits of MAC and general anesthesia. We discussed spectrum of MAC anesthesia including conversion to general as well as possibility of recall of intraoperative stimuli including discomfort/pain. Patient agrees to proceed with MAC. Plan pre procedure ondansetron Risk of > 500 ml blood loss (7ml/kg in children): No Medications/Allergies Home Medications Medication Instructions Recorded Confirmed Last Taken Type sole support #1 ea 09/09/19 11/28/21 Unknown Rx tiotropium bromide 1.25 2 puff INHALATION DAILY 11/11/19 11/30/21 07/03/21 06:00 History mcg/actuation mist for inhalation (Spiriva Respimat) azelastine 137 mcg (0.1 %) nasal 2 spray INTRANASAL BID 90 Days #30 12/10/19 11/30/21 07/02/21 Rx spray aerosol ml ASO ankle brace #1 ea 05/12/20 04/26/22 Unknown Rx budesonide-formoterol HFA 160 2 puff INHALATION BID 06/13/20 11/30/21 07/02/21 History mcg-4.5 mcg/actuation aerosol inhaler (Symbicort) fluticasone propionate 50 1 spray INTRANASAL BID #15.8 ml 06/13/20 11/30/21 07/02/21 Rx mcg/actuation nasal spray,suspension (Flonase Allergy Relief) Custom Functional orthotic #1 ea 10/12/20 11/28/21 Unknown Rx Custom Molded Functional Orthotics #1 ea 01/18/21 11/28/21 Unknown Rx famotidine 40 mg tablet 40 mg PO BID 05/15/21 11/30/21 11/30/21 History sumatriptan succinate 50 mg tablet 50 mg PO Q2H PRN 08/14/21 11/30/21 Unknown History Custom molded orthotics #1 ea 08/16/21 11/28/21 Unknown Rx galcanezumab-gnlm 120 mg/mL 120 mg SUBCUT ONCE #1 ml 11/09/21 11/30/21 Unknown Rx subcutaneous pen injector (Emgality Pen) Allergies Allergy/AdvReac Type Severity Reaction Status Date / Time aspirin Allergy Mild ALGY-Hives Verified 11/30/21 09:50 Current Medications Generic Name Dose Route Start Last Admin Trade Name Freq PRN Reason Stop Dose Admin Sodium Chloride 1,000 mls @ 30 mls/hr 11/30/21 08:45 11/30/21 08:56 Sodium Chloride 0.9% IV 12/01/21 08:44 30 mls/hr .Q24H MILLICENT Administration Ondansetron HCl 4 mg 11/30/21 08:36 11/30/21 09:51 Ondansetron 2 Mg/Ml Sdv 2 Ml IVP 4 mg Q15M PRN Administration Nausea/Vomiting PACU PHASE II [facility] Anesthesia Medical History Asthma Chiari malformation Endometriosis (~1995) self reports surgical dx GERD (gastroesophageal reflux disease) Left groin pain No pertinent past medical history neghx: htn,dm,thyroid,dvt/pe PCP: J[place] LEVINE Premature ovarian failure Surgical History History of brain surgery (~2018) tx of chiari History of laparoscopy (~1995) History of left oophorectomy (~2014) Hx of cholecystectomy (~2009) Hx of dilation and curettage (~2008) SAB Status post left inguinal hernia repair Family History Daughter Bleeding disorder Daughter with vonWillibrand Grandmother Breast cancer Paternal--dx age unknown Family/Other Breast cancer Paternal Aunt--dx age unknown Heart disease Paternal side in general Father Stroke Grandfather Stroke Paternal Other Clotting disorder Denies family history of Colon cancer Ovarian cancer Diabetes Hypercholesteremia Hypertension Uterine cancer Social History Smoking and tobacco status: never smoked Alcohol intake: never Lives independently: Yes Marital status: service: Yes 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
[2021-11-30 10:24] VITALS: BP 107/77; PULSE 73; RESP 18; TEMP 36.6; O2SAT 93
--- NOTE | 2021-11-30 10:26 | ANE.PACU2 ---
Documented by User: Yamileth Martínez CRNA 11/30/21 10:26 Inpatient post-anesthesia follow up: Airway intact: Yes Vital signs: Temperature 97.8 F Pulse Rate 73 Respiratory Rate 18 Blood Pressure 107/77 Pulse Oximetry 93 Oxygen Delivery Me thod Room Air Oxygen Flow Rate Fraction of Inspir ed Oxygen Hydration adequate: Yes Nausea and vomiting: No Pain level: 1 Mental status: Baseline
[2021-11-30 10:30] VITALS: BP 120/67; PULSE 79; RESP 18; O2SAT 95
== END 2021-11-30 10:50 | disposition home or self-care (01) ==
PROVIDERS: PCP Nurse Practitioner; Visit Provider Surgery
PROC: 0DJD8ZZ Inspection of Lower Intestinal Tract, Via Natural or Artificial Opening Endoscopic (ICD-10-PCS; CPT 45378; principal; 2021-11-30 10:00)
DX: Z12.11 Encounter for screening for malignant neoplasm of colon (principal); J45.50 Severe persistent asthma, uncomplicated; M19.90 Unspecified osteoarthritis, unspecified site; K21.9 Gastro-esophageal reflux disease without esophagitis; Z80.3 Family history of malignant neoplasm of breast
CPT/HCPCS: 45378; 96374; J2405; J2704; J7030

== ENCOUNTER 2021-12-13 08:42 | Emergency (ER) | payer OTHER, SELFPAY ==
[2021-12-13 08:49] VITALS: BP 119/84; PULSE 95; RESP 18; TEMP 36.6; O2SAT 100; BMI 27.3
--- NOTE | 2021-12-13 09:00 | CT_ITS ---
WS: [id number] CT ABDOMEN AND PELVIS NONCONTRAST HISTORY: Severe RIGHT upper quadrant pain with nausea for one week. Prior colonoscopy 11/30 TECHNIQUE: Imaging performed through the abdomen and pelvis. Coronal and sagittal reformats are submi tted. All CT scans at [facility] use at least one of these dose optimization techniques: auto mated exposure control; mA and/or kV adjustment per patient size (includes targeted exams where dose is matched to clinical indication); or iterative reconstruction. DLP: 1316.61 mGy.cm COMPARISON: CT pelvis 03/22/2021 Lower thorax: Lung bases are clear. Visualized heart is normal. No hiatal hernia. Liver: Normal size liver. No mass or bile duct dilatation. Gallbladder: Prior cholecystectomy. Pancreas: Normal size and attenuation. Normal pancreatic duct. No pancreatitis or mass. Spleen: Normal. Adrenal glands: Normal. No mass. Right kidney: Nonobstructing 3 mm calcification in the lower pole. Left kidney: Nonobstructing 3 mm calcification mid kidney. Aorta: Normal abdominal aorta, no aneurysm or atherosclerosis. No free fluid, intraperitoneal air or significant lymphadenopathy. GI tract: Normally distended stomach. No small bowel obstruction. Mild diffuse constipation. The appe ndix is normal. No inflammatory changes in the RIGHT lower quadrant. Abdominal wall: Negative. No hernia. Pelvis: Normal size uterus. No mass or fluid. Osseous structures: Mild degenerative disc disease at L5-S1. CT/CT abdomen pelvis wo con [id number] IMPRESSION: 1. No GI tract obstruction. No free air. 2. Small bilateral nonobstructing renal calculi. 3. Prior cholecystectomy. 4. Normal appendix.
--- NOTE | 2021-12-13 09:01 | ECG_ITS ---
[facility] Test Date: 2021-12-13 Pat Name: Giovanna Barker Department: Room: Gender: Female Instrument Lens Generator: : 1975 Requested By: Ayad Vincent Order Number: [id number] Mark MD: Leyla Piper M.D. Measurements Intervals [place] Rate: 86 P: 62 ND: 174 QRS: 11 QRSD: 97 T: 52 QT: 349 QTc: 420 Interpretive Statements SINUS RHYTHM INCOMPLETE RIGHT BUNDLE BRANCH BLOCK [90+ ms QRS DURATION, TERMINAL R IN V1/V2, 40+ ms S IN I/aVL/V4/V5/V6] No previous ECG available for comparison Electronically Signed On 12-13-2021 22:43:31 CDT by Leyla Piper M.D. [email or web address]
--- NOTE | 2021-12-13 09:15 | W.ED.ABDPA2 ---
HPI - Abdominal Pain General: Chief Complaint: Abdominal Pain Stated Complaint: 11/30 had surgery, having severe pain right side Time Seen by Provider: 12/13/21 08:45 Source: patient Mode of arrival: ambulatory Limitations: no limitations History of Present Illness: 46-year-old female presents emergency room with complaint of right upper quadrant abdominal pain began 3 days ago. She has had a lot of nausea but no vomiting. She relates it to the colonoscopy she had on 428. Colonoscopy was for screening is reported to her to be normal she had been fine since the colonoscopy up until 3 days ago she previously had has a cholecystectomy incisional hernia surgery. She continues to have bowel movements. Her appetite is maintained. She denies any medic easy melena hematemesis cough cramps dysuria urgency frequency or hematuria. MD elicited complaint: abdominal pain Onset (ago): day(s) (3) Pain Consistency: constant Location: RUQ Severity: moderate Quality: cramping Radiation: none Exacerbating factors: nothing Relieving factors: nothing Associated Symptoms: Reports bloating, GI cramping and nausea; Denies anorexia, belching, change in bowel habits, change in stool character, chills, coffee ground emesis, constipation, diarrhea, dyspepsia, dysuria, excessive flatus, fever(s), heartburn, hematochezia, hematuria, hematemesis, fecal incontinence, loose stools, melena, poor appetite, syncope and vomiting Review of Systems Const: Denies: fever(s) or chills ENMT: Denies: throat pain, ear or mastoid pain, nasal discharge or nasal congestion Card: Denies: syncope Resp: Denies: dyspnea, productive cough or non-productive cough GI: Reports: abdominal pain, nausea, bloating and GI cramping; Denies: vomiting, hematemesis, coffee ground emesis, heartburn, diarrhea, constipation, belching, excessive flatus, fecal incontinence, change in bowel habits, change in stool character, hematochezia or melena : Denies: flank pain, difficulty voiding, dysuria, urinary frequency, urinary urgency or hematuria Musc: Denies: neck pain or back pain Skin/Breast: Denies: rash or pruritus PFSH ED PFSH: Medical History Asthma Chiari malformation Endometriosis (~1995) self reports surgical dx GERD (gastroesophageal reflux disease) Left groin pain No pertinent past medical history neghx: htn,dm,thyroid,dvt/pe PCP: Jena LEVINE Premature ovarian failure Surgical History History of brain surgery (~2018) tx of chiari History of laparoscopy (~1995) History of left oophorectomy (~2014) Hx of cholecystectomy (~2009) Hx of dilation and curettage (~2008) SAB Status post left inguinal hernia repair Family History Daughter Bleeding disorder Daughter with vonWillibrand Grandmother Breast cancer Paternal--dx age unknown Family/Other Breast cancer Paternal Aunt--dx age unknown Heart disease Paternal side in general Father Stroke Grandfather Stroke Paternal Other Clotting disorder Denies family history of Colon cancer Ovarian cancer Diabetes Hypercholesteremia Hypertension Uterine cancer Social History Smoking and tobacco status: never smoked Alcohol intake: never Lives independently: Yes Marital status: service: Yes 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 Resp: COMMON NORMALS: normal respiratory effort, No retractions, No use of accessory muscles and clear to auscultation bilaterally AUSCULTATION: clear to auscultation bilaterally Cardio: COMMON NORMALS: no JVD, regular rate, regular rhythm and No murmurs present (Cardio) RATE: regular rate RHYTHM: regular rhythm GI: COMMON NORMALS: No hepatosplenomegaly present AUSCULTATION: Yes normoactive bowel sounds PALPATION: Yes Tenderness to palpation present (GI) Details: RUQ, No Guarding due to palpation present (GI) and Yes No hepatosplenomegaly present Extremity: COMMON NORMALS: normal to inspection, capillary refill normal, no clubbing, cyanosis or edema, no calf tenderness and no pedal edema Neuro: SENSORIUM/ORIENTATION: Yes oriented to person, Yes oriented to place and Yes oriented to time Skin: COMMON NORMALS: no rashes or lesions noted GENERAL SKIN EXAM: no rashes or lesions noted Course Vital Signs: Vital signs: Vital Signs Temperature 97.9 F 12/13/21 08:49 Pulse Rate 92 12/13/21 11:33 Respiratory Rate 14 12/13/21 11:33 Blood Pressure 119/84 12/13/21 08:49 Pulse Oximetry 95 12/13/21 11:33 MDM - Abdominal Pain Medical Decision Making Reviewed labs and imaging. She has some musculoskeletal chest wall pain seems to be more in the chest and in the abdomen. No significant findings discharge patient home follow-up as needed return if has further problems. Medical Records I reviewed the patient's medical records. Lab Data I reviewed the patient's lab results. : 12/13/21 09:20 12/13/21 09:20 Labs/Radiology: Radiology Impressions Abdomen/Pelvis CT 12/13/21 09:00 IMPRESSION: 1. No GI tract obstruction. No free air. 2. Small bilateral nonobstructing renal calculi. 3. Prior cholecystectomy. 4. Normal appendix. Chest X-Ray 12/13/21 11:16 IMPRESSION: No acute chest abnormality. Laboratory Results WBC 3.7 10^3/uL (4.0-10.0) L 12/13/21 09:20 RBC 4.39 10^6/uL (4.1-5.3) 12/13/21 09:20 Hgb 13.3 g/dL (11.5-15.3) 12/13/21 09:20 Hct 41.1 % (37.0-47.0) 12/13/21 09:20 MCV 93.6 fl (81-99) 12/13/21 09:20 MCH 30.3 pg (28.0-34.0) 12/13/21 09:20 MCHC 32.4 g/dL (30.0-36.0) 12/13/21 09:20 RDW 11.9 % (12.1-15.1) L 12/13/21 09:20 Plt Count 265 10^3/cmm (130-400) 12/13/21 09:20 MPV 9.9 fL (7.4-10.4) 12/13/21 09:20 Neut % (Auto) 46.6 % 12/13/21 09:20 Lymph % (Auto) 40.3 % 12/13/21 09:20 [place] % (Auto) 9.0 % 12/13/21 09:20 Eos % (Auto) 3.0 % 12/13/21 09:20 Baso % (Auto) 0.8 % 12/13/21 09:20 Neut # (Auto) 1.70 10^3/uL (1.8-7.7) L 12/13/21 09:20 Lymph # (Auto) 1.5 10^3/uL (0.8-4.8) 12/13/21 09:20 [place] # (Auto) 0.3 10^3/uL (0.2-0.9) 12/13/21 09:20 Eos # (Auto) 0.1 10^3/uL (0.0-0.8) 12/13/21 09:20 Baso # (Auto) 0.0 10^3/uL (0.0-0.1) 12/13/21 09:20 Nucleated RBC % (auto) 0 % 12/13/21 09:20 Nucleated RBCs # 0.0 /100WBC 12/13/21 09:20 Sodium 139 mmol/L (136-145) 12/13/21 09:20 Potassium 3.9 mmol/L (3.5-5.1) 12/13/21 09:20 Chloride 102 mmol/L (98-107) 12/13/21 09:20 Carbon Dioxide 28 mmol/L (22-29) 12/13/21 09:20 Anion Gap 12.9 (5-19) 12/13/21 09:20 BUN 21 mg/dL (6-20) H 12/13/21 09:20 Creatinine 0.5 mg/dL (0.5-0.9) 12/13/21 09:20 GFR Calculation 132.8 mL/min (90-130) H 12/13/21 09:20 Glucose 83 mg/dL (65-115) 12/13/21 09:20 Calculated Osmolality 290 mOsm/kg (285-295) 05/11/22 09:20 Calcium 10.2 mg/dL (8.5-10.5) 12/13/21 09:20 Magnesium 1.9 mg/dL (1.7-2.3) 12/13/21 09:20 Total Bilirubin 0.2 mg/dL (0.15-1.2) 12/13/21 09:20 AST 24 U/L (0-32) 12/13/21 09:20 ALT 31 U/L (0-33) 12/13/21 09:20 Alkaline Phosphatase 107 IU/L (35-105) H 12/13/21 09:20 Total Protein 7.5 g/dL (6.6-8.7) 12/13/21 09:20 Albumin 4.7 g/dL (3.5-5.2) 12/13/21 09:20 Globulin 2.8 g/dL (1.3-4.6) 12/13/21 09:20 Lipase 24 U/L (13-60) 12/13/21 09:20 Discharge Plan Discharge Patient Disposition: Home Clinical Impression: Musculoskeletal chest pain Condition: Stable Prescriptions: New hydrocodone-acetaminophen 5-325 mg tablet 1 tab PO Q6H PRN (Reason: pain) Qty: 20 0RF prednisone 20 mg tablet 20 mg PO TID Qty: 15 0RF Rx Instructions: 1 p.o. 3 times daily x3 days, 1 p.o. twice daily x2 days, 1 p.o. daily x2 days diclofenac sodium 75 mg tablet,delayed release (DR/EC) 75 mg PO Q12H PRN (Reason: pain) Qty: 20 0RF No Action (DME) sole support Qty: 1 0RF Rx Instructions: As directed budesonide-formoterol [Symbicort] 160-4.5 mcg/actuation HFA aerosol inhaler 2 puff inhalation BID 0RF fluticasone propionate [Flonase Allergy Relief] 50 mcg/actuation spray,suspension 1 spray intranasal BID Qty: 15.8 3RF Rx Instructions: administer into each nostril sumatriptan succinate 50 mg tablet 50 mg PO Q2H PRN (Reason: Migraine Headache) 0RF Rx Instructions: do not exceed 4 doses per 24 hrs Spiriva Respimat 1.25 mcg/actuation mist 2 puff INHALATION DAILY 0RF azelastine 137 mcg (0.1 %) aerosol,spray 2 spray INTRANASAL BID 90 Days Qty: 30 3RF Rx Instructions: administer into each nostril (DME) ASO ankle brace Qty: 1 0RF Rx Instructions: As directed (DME) Custom Functional orthotic See Rx Instructions .Route .MEDSUPPLY Qty: 1 0RF Rx Instructions: Deep heel cup, custom made by [employer] (DME) Custom Molded Functional Orthotics See Rx Instructions .Route .MEDSUPPLY Qty: 1 0RF Rx Instructions: Deep heel cup and more proximal metatarsal pad (Left and Right) Made by [employer] famotidine 40 mg tablet 40 mg PO BID 0RF (DME) Custom molded orthotics See Rx Instructions .Route .MEDSUPPLY Qty: 1 0RF Rx Instructions: As directed Emgality Pen 120 mg/mL pen injector 120 mg SUBCUT ONCE Qty: 1 3RF Rx Instructions: Once monthly Discharge Orders: Discharge ED (Routine); Ordered 12/13/21 Ordered By: Ayad Rdz Referrals: Noris Hatfield FNP [Primary Care Provider] - Discharge Diet: Usual diet Discharge Activity: Resume usual activity Patient Instructions: Opioid Safety Activity Restrictions/Additional Instructions: No lifting above chest level no lifting greater than 10 pounds. Coding Level of Care Code ED Beam Machine Operator for Sukumar Fwd Exam Comprehensive
[2021-12-13 09:32] LABS: Basophils % 0.8 %; Eosinophils # 0.1 10^3/uL (0.0-0.8); Hematocrit 41.1 % (37.0-47.0); Hemoglobin 13.3 g/dL (11.5-15.3); Lymphocytes # 1.5 10^3/uL (0.8-4.8); Lymphocytes % 40.3 %; Mean Corpuscular HGB Conc 32.4 g/dL (30.0-36.0); Mean Corpuscular Hemoglobin 30.3 pg (28.0-34.0); Mean Corpuscular Volume 93.6 fl (81-99); Mean Platelet Volume 9.9 fL (7.4-10.4); Monocytes # 0.3 10^3/uL (0.2-0.9); Neutrophils % 46.6 %; Nucleated Red Blood Cells % 0 %; Platelet Count 265 10^3/cmm (130-400); Red Blood Count 4.39 10^6/uL (4.1-5.3); Red Cell Distribution Width 11.9 % (12.1-15.1); White Blood Count 3.7 10^3/uL (4.0-10.0)
[2021-12-13] MEDS: lactated ringers 1,000 ML 999 ML IV ×2 (09:50→11:23)
[2021-12-13] MEDS: ondansetron 2 mg/ML SDV 2 mL 4 MG IVP (09:51)
[2021-12-13 09:52] VITALS: RESP 16; O2SAT 98
[2021-12-13] MEDS: morphine 4 mg/mL SDV 1 mL IVP ×2 (09:52→11:14)
[2021-12-13 09:57] LABS: Alanine Aminotransferase 31 U/L (0-33); Albumin Level 4.7 g/dL (3.5-5.2); Alkaline Phosphatase 107 IU/L (35-105); Aspartate Amino Transferase 24 U/L (0-32); Blood Urea Nitrogen 21 mg/dL (6-20); Calcium 10.2 mg/dL (8.5-10.5); Carbon Dioxide 28 mmol/L (22-29); Chloride 102 mmol/L (98-107); Globulin 2.8 g/dL (1.3-4.6); Glomerular Filtration Rate 132.8 mL/min (90-130); Glucose 83 mg/dL (65-115); Lipase 24 U/L (13-60); Magnesium 1.9 mg/dL (1.7-2.3); Osmolality Calculated 290 mOsm/kg (285-295); Sodium 139 mmol/L (136-145); Total Bilirubin 0.2 mg/dL (0.15-1.2); Total Protein 7.5 g/dL (6.6-8.7)
[2021-12-13 09:58] LABS: Anion Gap 12.9 (5-19); Potassium 3.9 mmol/L (3.5-5.1)
[2021-12-13 11:14] VITALS: RESP 18; O2SAT 99
--- NOTE | 2021-12-13 11:16 | XR_ITS ---
WS: [id number] XR chest 1V portable [id number] REASON FOR EXAM: dyspnea FINDINGS: Chest is unchanged compared to 10/22/2020. Mild tortuosity the thoracic aorta with normal heart size. Calcified granulomatous disease in both hemithoraces. No active pulmonary parenchymal or pleural disease. Moderate changes of degenerative spondylosis in the thoracic spine. XR/XR chest 1V portable [id number] IMPRESSION: No acute chest abnormality.
[2021-12-13] MEDS: lidocaine 2% viscous 15 ML, aluminum-mag hydrox-simethicon 30 ML, sucralfate oral liq 1 GM PO (11:20)
[2021-12-13] MEDS: promethazine 25 mg/mL SDV 1 mL IM (11:22)
[2021-12-13 11:33] VITALS: PULSE 92; RESP 14; O2SAT 95
[2021-12-13] MEDS: lactated ringers 1,000 ML 50 ML IV (12:25)
--- NOTE | 2021-12-13 13:46 | PC.NURSE ---
attempted discharge awaiting zofran rx
--- NOTE | 2021-12-13 14:14 | PC.NURSE ---
rec'd additional RX for zofran
== END 2021-12-13 14:18 | disposition home or self-care (01) ==
PROVIDERS: Emergency Provider Family Medicine; PCP Nurse Practitioner
DX: R07.89 Other chest pain (principal); N20.0 Calculus of kidney; Z90.49 Acquired absence of other specified parts of digestive tract
CPT/HCPCS: 71045; 74176; 80053; 83690; 83735; 85025; 93005; 96361; 96372; 96374; 96375; 96376; 99285; J2270; J2405; J2550

== ENCOUNTER → 2022-01-03 15:01 | Outpatient (BNVA) | payer OTHER, SELFPAY | PROVIDERS: PCP Nurse Practitioner; Visit Provider Podiatrist Foot & Ankle Surgery | DX: M79.672 Pain in left foot (principal); G57.62 Lesion of plantar nerve, left lower limb | CPT/HCPCS: 99213; 99214 ==

== ENCOUNTER → 2022-06-05 12:38 | Outpatient (BNVA) | payer OTHER, SELFPAY | PROVIDERS: PCP Nurse Practitioner; Visit Provider Podiatrist Foot & Ankle Surgery | DX: G57.62 Lesion of plantar nerve, left lower limb (principal) | CPT/HCPCS: 64455 ==

== ENCOUNTER → 2022-07-16 13:31 | Outpatient (BNVA) | payer OTHER, SELFPAY | PROVIDERS: PCP Nurse Practitioner; Visit Provider Podiatrist Foot & Ankle Surgery | DX: G57.62 Lesion of plantar nerve, left lower limb (principal) | CPT/HCPCS: 99213 ==

== ENCOUNTER 2022-12-23 20:28 | Emergency (ER) | payer OTHER, SELFPAY ==
[2022-12-23] VITALS (7 sets, daily range): BP systolic 141–169; BP diastolic 63–107; PULSE 77–91; RESP 15–24; O2SAT 90–99; BMI 24.9
--- NOTE | 2022-12-23 20:41 | XRR_ITS ---
PROCEDURE INFORMATION: Exam: XR Chest Exam date and time: 12/23/2022 9:01 PM Age: 47 years old Clinical indication: Pain; Chest pressure; Additional info: Cp TECHNIQUE: Imaging protocol: Radiologic exam of the chest. Views: 1 view. COMPARISON: CR XR chest 1V portable [id number] 12/13/2021 11:29 AM FINDINGS: Lungs: Mild linear atelectasis or scar in the lingula. The lungs otherwise are clear. Pleural spaces: Unremarkable. No pleural effusion. No pneumothorax. Heart/Mediastinum: Unremarkable. No cardiomegaly. Bones/joints: Unremarkable. XR/XR chest 1V portable [id number] IMPRESSION: No acute findings.
--- NOTE | 2022-12-23 20:41 | ECG_ITS ---
[facility] Test Date: 2022-12-23 Pat Name: Giovanna Barker Department: Room: Gender: Female Clinical Engineer: : 1975 Requested By: Avtar Bhat Order Number: [id number] Mark MD: Michael Mares M.D. Measurements Intervals [place] Rate: 94 P: 74 OK: 184 QRS: 48 QRSD: 94 T: 55 QT: 349 QTc: 437 Interpretive Statements SINUS RHYTHM Compared to ECG 12/13/2021 09:17:41 Incomplete right bundle-branch block no longer present Electronically Signed On 12-24-2022 16:33:07 CDT by Michael Mares M.D. [id number] f
[2022-12-23 20:46] LABS: Basophils % 0.2 %; Eosinophils # 0.1 10^3/uL (0.0-0.8); Eosinophils % 1.4 %; Hematocrit 37.6 % (37.0-47.0); Hemoglobin 12.1 g/dL (11.5-15.3); Lymphocytes # 2.4 10^3/uL (0.8-4.8); Lymphocytes % 48.7 %; Mean Corpuscular HGB Conc 32.2 g/dL (30.0-36.0); Mean Corpuscular Hemoglobin 29.7 pg (28.0-34.0); Mean Corpuscular Volume 92.4 fl (81-99); Mean Platelet Volume 9.5 fL (7.4-10.4); Monocytes # 0.4 10^3/uL (0.2-0.9); Neutrophils # 2.02 10^3/uL (1.8-7.7); Neutrophils % 41.5 %; Nucleated Red Blood Cells % 0 %; Platelet Count 265 10^3/cmm (130-400); Red Blood Count 4.07 10^6/uL (4.1-5.3); Red Cell Distribution Width 11.9 % (12.1-15.1); White Blood Count 4.9 10^3/uL (4.0-10.0)
[2022-12-23] MEDS: lidocaine 2% viscous 15 ML, aluminum-mag hydrox-simethicon 30 ML, sucralfate oral liq 1 GM PO (21:00)
[2022-12-23] MEDS: ondansetron 2 mg/ML SDV 2 mL 4 MG IVP (21:05)
[2022-12-23] MEDS: morphine 4 mg/mL SDV 1 mL IVP (21:05)
[2022-12-23 21:11] LABS: Troponin(5th) Baseline 6 ng/L (0-10)
[2022-12-23 21:17] LABS: D Dimer <= 0.27 ug/mIFEU (0-0.59)
[2022-12-23 21:19] LABS: Alanine Aminotransferase 16 U/L (0-33); Albumin Level 4.2 g/dL (3.5-5.2); Alkaline Phosphatase 81 U/L (35-105); Anion Gap 13.7 (5-19); Aspartate Amino Transferase 23 U/L (0-32); Blood Urea Nitrogen 20 mg/dL (6-20); Calcium 9.4 mg/dL (8.5-10.5); Carbon Dioxide 26 mmol/L (22-29); Chloride 104 mmol/L (98-107); Globulin 2.5 g/dL (1.3-4.6); Glomerular Filtration Rate 89.7 mL/min (90-130); Glucose 90 mg/dL (65-115); NT Pro B Type Natriuretic Pept 36 pg/mL (0-125); Osmolality Calculated 292 mOsm/kg (285-295); Potassium 3.7 mmol/L (3.5-5.1); Sodium 140 mmol/L (136-145); Total Bilirubin 0.2 mg/dL (0.15-1.2); Total Protein 6.7 g/dL (6.6-8.7)
--- NOTE | 2022-12-23 21:20 | ED_ITS ---
HPI - Chest Pain General: Chief Complaint: Chest Pain Stated Complaint: cp Time Seen by Provider: 12/23/22 20:36 History of Present Illness: 47-year-old female with no prior history of coronary or cardiac disease otherwise. She complains of a sudden sharp centralized chest discomfort that comes and goes all day today. Earlier in the day, it would come every couple of minutes, it is spaced out to every 20 minutes or so, but is much more severe now. She says it takes of breath when it comes. Otherwise she is not short of breath, not overly nauseated, not diaphoretic, and feels fine most of the time. MD complaint: chest pain Pertinent past history: other Onset (ago): hour(s) Timing of current episode: episodic Prior episodes: Yes Onset: during rest Pain location: substernal Pain radiation: none Severity: severe Quality: sharp Relieving factors: nothing Associated symptoms: Reports dyspnea (With episodes); Deny abdominal pain, diaphoresis, fever(s), leg edema, nausea, palpitations or vomiting Treatment prior to arrival: none Review of Systems Const: Denies: fever(s) or diaphoresis ENMT: Denies: throat pain Card: Reports: chest pain; Denies: palpitations or irregular heart rhythm Resp: Reports: dyspnea (With episodes); Denies: productive cough or non-productive cough GI: Denies: abdominal pain, nausea or vomiting REPLACED BY [facility] ED PFSH: Medical History Asthma Chiari malformation Endometriosis (~1995) self reports surgical dx GERD (gastroesophageal reflux disease) Left groin pain No pertinent past medical history neghx: htn,dm,thyroid,dvt/pe PCP: Jena Hatfield [place] Premature ovarian failure Surgical History History of brain surgery (~2018) tx of chiari History of laparoscopy (~1995) History of left oophorectomy (~2014) Hx of cholecystectomy (~2009) Hx of dilation and curettage (~2008) SAB Status post left inguinal hernia repair Family History Daughter Bleeding disorder Daughter with vonWillibrand Grandmother Breast cancer Paternal--dx age unknown Family/Other Breast cancer Paternal Aunt--dx age unknown Heart disease Paternal side in general Father Stroke Grandfather Stroke Paternal Other Clotting disorder Denies family history of Colon cancer Ovarian cancer Diabetes Hypercholesteremia Hypertension Uterine cancer Social History Smoking and tobacco status: never smoked Alcohol intake: never Substance/Drug Use: never Lives independently: Yes Marital status: service: Yes 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 Do you think of yourself as: Straight/Heterosexual Physical Exam Const: COMMON NORMALS: no acute distress GENERAL APPEARANCE: cooperative; not ill appearing and not frail appearing HENMT: COMMON NORMALS: normocephalic, atraumatic and Normal external nose present HEAD & SCALP: normocephalic and atraumatic FACE & SINUS: normal facial exam and face symmetric NOSE: Normal external nose present Eye: COMMON NORMALS: Equal, round and reactive pupils present and EOMs intact bilaterally PUPIL: Yes Equal, round and reactive pupils present Neck/C-Spine: GENERAL: Yes trachea midline Chest: CHEST: Yes Symmetrical chest wall rise Resp: COMMON NORMALS: normal respiratory effort, No retractions, No use of accessory muscles and clear to auscultation bilaterally AUSCULTATION: clear to auscultation bilaterally Cardio: COMMON NORMALS: regular rate and regular rhythm RATE: regular rate RHYTHM: regular rhythm GI: COMMON NORMALS: Normal to inspection, nondistended, normoactive bowel sounds present Extremity: COMMON NORMALS: no pedal edema Neuro: NARINDER COMA SCALE: document GCS findings Narinder coma scale eye opening: Spontaneous Narinder coma scale verbal response: Orientated Westhoff coma scale motor response: Obey commands Narinder coma scale total score: 15 SENSORY EXAM: Yes extremities (intact) Psych: COMMON NORMALS: speech normal SPEECH: Yes normal speech Skin: COMMON NORMALS: no rashes or lesions noted GENERAL SKIN EXAM: no rashes or lesions noted Course Vital Signs: Vital signs: Vital Signs Pulse Rate 80 12/24/22 00:00 Respiratory Rate 16 12/24/22 00:00 Blood Pressure 136/84 12/24/22 00:44 Pulse Oximetry 95 12/24/22 00:00 Oxygen Delivery Me thod Room Air 12/23/22 20:38 MDM - Chest Pain Medical Decision Making Patient still getting infrequent sharp pains. Vitals are stable. CBC and BMP are normal. Troponin is normal and normal at 2 hours. EKG shows no acute ST changes with a normal axis and normal intervals. D-dimer is nondetectable. No clear cause of chest discomfort. Will discharge for outpatient follow-up. Lab Data 12/23/22 20:39 12/23/22 20:39 Radiology Impressions Chest X-Ray 12/23/22 20:41 IMPRESSION: No acute findings. Laboratory Results WBC 4.9 10^3/uL (4.0-10.0) 12/23/22 20:39 RBC 4.07 10^6/uL (4.1-5.3) L 12/23/22 20:39 Hgb 12.1 g/dL (11.5-15.3) 12/23/22 20: Hct 37.6 % (37.0-47.0) 12/23/22 20: MCV 92.4 fl (81-99) 12/23/22 20: MCH 29.7 pg (28.0-34.0) 12/23/22 20: MCHC 32.2 g/dL (30.0-36.0) 12/23/22 20:39 RDW 11.9 % (12.1-15.1) L 12/23/22 20:39 Plt Count 265 10^3/cmm (130-400) 12/23/22 20:39 MPV 9.5 fL (7.4-10.4) 12/23/22 20:39 Neut % (Auto) 41.5 % 12/23/22 20: Lymph % (Auto) 48.7 % 12/23/22 20: [place] % (Auto) 8.0 % 12/23/22 20:39 Eos % (Auto) 1.4 % 12/23/22 20:39 Baso % (Auto) 0.2 % 12/23/22 20: Neut # (Auto) 2.02 10^3/uL (1.8-7.7) 12/23/22 20: Lymph # (Auto) 2.4 10^3/uL (0.8-4.8) 12/23/22 20:39 [place] # (Auto) 0.4 10^3/uL (0.2-0.9) 12/23/22 20:39 Eos # (Auto) 0.1 10^3/uL (0.0-0.8) 12/23/22 20:39 Baso # (Auto) 0.0 10^3/uL (0.0-0.1) 12/23/22 20:39 Nucleated RBC % (auto) 0 % 12/23/22 20:39 Nucleated RBCs # 0.0 /100WBC 12/23/22 20:39 D-Dimer <= 0.27 ug/mIFEU (0-0.59) 12/23/22 20:39 Sodium 140 mmol/L (136-145) 12/23/22 20:39 Potassium 3.7 mmol/L (3.5-5.1) 12/23/22 20:39 Chloride 104 mmol/L (98-107) 12/23/22 20:39 Carbon Dioxide 26 mmol/L (22-29) 12/23/22 20:39 Anion Gap 13.7 (5-19) 12/23/22 20:39 BUN 20 mg/dL (6-20) 12/23/22 20:39 Creatinine 0.7 mg/dL (0.5-0.9) 12/23/22 20:39 GFR Calculation 89.7 mL/min (90-130) L 12/23/22 20:39 Glucose 90 mg/dL (65-115) 12/23/22 20:39 Calculated Osmolality 292 mOsm/kg (285-295) 12/23/22 20:39 Calcium 9.4 mg/dL (8.5-10.5) 12/23/22 20:39 Total Bilirubin 0.2 mg/dL (0.15-1.2) 12/23/22 20:39 AST 23 U/L (0-32) 12/23/22 20:39 ALT 16 U/L (0-33) 12/23/22 20:39 Alkaline Phosphatase 81 U/L (35-105) 12/23/22 20:39 Troponin T Baseline 6 ng/L (0-10) 12/23/22 20:39 Troponin T 120 Minute Cancelled 12/23/22 23:01 Delta Troponin T Cancelled 12/23/22 23:01 Troponin T Hi Sens 6Hr Cancelled 12/24/22 Unknown Troponin T Hi Sens 6Hr Delta Cancelled 12/24/22 Unknown NT-Pro-B Natriuret Pep 36 pg/mL (0-125) 12/23/22 20:39 Total Protein 6.7 g/dL (6.6-8.7) 12/23/22 20:39 Albumin 4.2 g/dL (3.5-5.2) 12/23/22 20:39 Globulin 2.5 g/dL (1.3-4.6) 12/23/22 20:39 Discharge Plan Discharge Patient Disposition: Home Clinical Impression: Chest pain Condition: Stable Prescriptions: No Action budesonide-formoterol [Symbicort] 160-4.5 mcg/actuation HFA aerosol inhaler 2 puff inhalation BID fluticasone propionate [Flonase Allergy Relief] 50 mcg/actuation spray,suspension 1 spray intranasal BID Qty: 15.8 3RF Rx Instructions: administer into each nostril sumatriptan succinate 50 mg tablet 50 mg PO Q2H PRN (Reason: Migraine Headache) Rx Instructions: do not exceed 4 doses per 24 hrs (DME) Custom Molded Orthotics See Rx Instructions .Route .MEDSUPPLY Qty: 1 0RF Rx Instructions: As directed by [facility] Physical Therapy Department- I am requesting authorization to perform molds of her feet in podiatry clinic at [facility] and for custom orthotics to be manufactured through [facility] physical therapy department to treat Plantar Fasciitis bilaterally and Left A chilles Tendinitis on this patient. Would require authorization for custom molded orthotics L code 3030 and dispensing through physical therapy CPT code 78496 Spiriva Respimat 1.25 mcg/actuation mist 2 puff INHALATION DAILY azelastine 137 mcg (0.1 %) aerosol,spray 2 spray INTRANASAL BID 90 Days Qty: 30 3RF Rx Instructions: administer into each nostril famotidine 40 mg tablet 40 mg PO BID Emgality Pen 120 mg/mL pen injector 120 mg SUBCUT ONCE Qty: 1 3RF Rx Instructions: Once monthly (DME) Low Profile Carbon Fiber Sport Orthotics See Rx Instructions .Route .MEDSUPPLY Qty: 1 0RF Rx Instructions: As directed by [employer] hydrocodone-acetaminophen 5-325 mg tablet 1 tab PO Q6H PRN (Reason: pain) Qty: 20 0RF prednisone 20 mg tablet 20 mg PO TID Qty: 15 0RF Rx Instructions: 1 p.o. 3 times daily x3 days, 1 p.o. twice daily x2 days, 1 p.o. daily x2 days diclofenac sodium 75 mg tablet,delayed release (DR/EC) 75 mg PO Q12H PRN (Reason: pain) Qty: 20 0RF Discharge Orders: Discharge ED (Routine); Ordered 12/24/22 Ordered By: Avtar Ceballos Referrals: Noris Hatfield FNP [Primary Care Provider] - 1-3 days Patient Instructions: Chest Pain (ED) Coding Level of Care Code ED Bale Sewer for Sukumar Santana
--- NOTE | 2022-12-23 21:35 | PC.NURSE ---
Pt hooked up to continuous bedside cardiac monitoring.
--- NOTE | 2022-12-23 22:41 | ECG_ITS ---
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 Measurements Intervals [place] Rate: 83 P: 63 OR: 209 QRS: 37 QRSD: 99 T: 50 QT: 379 QTc: 447 Interpretive Statements SINUS RHYTHM POSSIBLE RIGHT VENTRICULAR CONDUCTION DELAY [RSR (QR) IN V1/V2] Compared to ECG 12/13/2021 09:17:41 Incomplete right bundle-branch block no longer present Electronically Signed On 12-23-2022 23:06:47 CDT by Michael Mares M.D. [id number]
[2022-12-24] VITALS: BP 150/96; PULSE 80; RESP 16; O2SAT 95
[2022-12-24 00:44] VITALS: BP 136/84
== END 2022-12-24 00:45 | disposition home or self-care (01) ==
PROVIDERS: Emergency Provider Emergency Medicine; PCP Nurse Practitioner
DX: R07.9 Chest pain, unspecified (principal)
CPT/HCPCS: 71045; 80053; 83880; 84484; 85025; 85378; 93005; 96374; 96375; 99285; J2270; J2405

== ENCOUNTER → 2023-04-12 12:57 | Outpatient (BNVA) | payer OTHER, SELFPAY | PROVIDERS: PCP Nurse Practitioner; Visit Provider Podiatrist Foot & Ankle Surgery | DX: M77.42 Metatarsalgia, left foot; S92.335A Nondisplaced fracture of third metatarsal bone, left foot, initial encounter for closed fracture; S92.345A Nondisplaced fracture of fourth metatarsal bone, left foot, initial encounter for closed fracture; X58.XXXA Exposure to other specified factors, initial encounter | CPT/HCPCS: 73630 ==

== ENCOUNTER → 2023-05-06 09:23 | Outpatient (BNVA) | payer OTHER, SELFPAY | PROVIDERS: PCP Nurse Practitioner; Visit Provider Podiatrist Foot & Ankle Surgery | DX: S92.335D Nondisplaced fracture of third metatarsal bone, left foot, subsequent encounter for fracture with routine healing; S92.345D Nondisplaced fracture of fourth metatarsal bone, left foot, subsequent encounter for fracture with routine healing; X58.XXXD Exposure to other specified factors, subsequent encounter; M77.42 Metatarsalgia, left foot | CPT/HCPCS: 73630; 99213 ==

== ENCOUNTER 2023-05-13 21:00 | Emergency (ER) | payer OTHER, SELFPAY ==
[2023-05-13 21:10] VITALS: BP 151/90; PULSE 102; RESP 17; TEMP 36.7; O2SAT 99; BMI 26.1
[2023-05-13 21:49] LABS: Basophils % 0.2 %; Hematocrit 38.6 % (36-47); Lymphocytes # 0.9 10^3/uL (0.8-4.8); Lymphocytes % 14.5 %; Mean Corpuscular HGB Conc 32.4 g/dL (30-55); Mean Corpuscular Hemoglobin 30.3 pg (27-33); Mean Corpuscular Volume 93.5 fl (85-98); Mean Platelet Volume 9.2 fL (7.4-10.4); Monocytes # 0.4 10^3/uL (0.2-0.9); Monocytes % 6.8 %; Neutrophils # 4.92 10^3/uL (1.8-7.7); Neutrophils % 78.2 %; Nucleated Red Blood Cells % 0 %; Platelet Count 293 10^3/cmm (157-399); Red Blood Count 4.13 10^6/uL (3.85-5.65); Red Cell Distribution Width 13.9 % (12.1-15.1); White Blood Count 6.29 10^3/uL (3.29-11.43)
--- NOTE | 2023-05-13 21:49 | CTR_ITS ---
PROCEDURE INFORMATION: Exam: CT Head Without Contrast Exam date and time: 05/13/2023 10:26 PM Age: 47 years old Clinical indication: Pain; Headache; Migraine; Aura effect not specified; Does not respond to medication; Severity not specified; Prior surgery; Surgery date: 6+ months; Surgery type: Chiari malformation surgery; Additional info: LÓPEZ; HX of chiari malformation surgery TECHNIQUE: Imaging protocol: Computed tomography of the head without contrast. Radiation optimization: All CT scans at this facility use at least one of these dose optimization techniques: automated exposure control; mA and/or kV adjustment per patient size (includes targeted exams where dose is matched to clinical indication); or iterative reconstruction. REPORTING DATA: Count of CT and Cardiac NM exams in prior 12 months: This patient has received 0 known CTs and 0 known cardiac nuclear medicine studies in the 12 months prior to the current study. COMPARISON: No relevant prior studies available. RADIATION DOSE METRICS: Total DLP (mGy-cm): 1054.98 FINDINGS: Brain: No acute intracranial hemorrhage, abnormal extra-axial fluid collection, mass effect, or midline shift. Pineal calcification is noted in. Cerebral ventricles: The ventricular system is within normal limits of variation for the patient's age. Paranasal sinuses: Visualized paranasal sinuses are grossly unremarkable. No air fluid levels. Mastoid air cells: Visualized mastoid air cells are well aerated. Bones/joints: No acute fracture. Operative changes of posterior fossa/Chiari decompression surgery is noted. Soft tissues: Grossly unremarkable. Vasculature: Minimal to mild atheromatous changes are seen within the bilateral carotid siphons. CT/CT head wo con* [id number] IMPRESSION: 1. No acute intracranial findings. 2. Other chronic/incidental findings as described above.
--- NOTE | 2023-05-13 21:50 | ED_ITS ---
HPI - Nausea/Vomiting/Diarrhea General: Chief complaint: Nausea/Vomiting/Diarrhea Stated complaint: N/V, shaking Time Seen by Provider: 05/13/23 21:25 Source: patient Mode of arrival: ambulatory Limitations: no limitations History of Present Illness: Patient is a 47-year-old female presents to ED today with complaint of nausea, vomiting, headache, and feeling thirsty. Patient states she took her Emgality yesterday after being off of this medication for several months. She thinks she may be having a hypersensitivity reaction to this. She feels tremulous as well. Patient states she has a history of chronic headaches secondary to a Chiari malformation surgery years ago. She does state her headache currently feels worse than her typical headaches. She denies visual changes. No numbness, ti ngling, loss of sensation, weakness to her extremities. No slurred speech, aphasia or facial droop. Patient states she tried Zofran at home for the nausea and vomiting without relief. He is not having any abdominal pain. No diarrhea. MD elicited complaint: nausea, vomiting and other (headache, tremulous, thirsty) Onset (ago): day(s) (yesterday) Associated nausea: Yes Associated abdominal pain: No Location of pain: None Exacerbating factors: eating Relieving factors: none Associated symtoms: Reports headache(s) and nausea; Denies change in vision, chest pain, dysuria, fatigue, malaise, palpitations or syncope Review of Systems Const: Denies: fever(s), chills, body aches, fatigue or malaise Eyes: Denies: change in vision, blurry vision, photophobia, floaters or seeing flashes Card: Denies: chest pain, palpitations, irregular heart rhythm, edema, swelling of feet/ankles, lightheadedness, syncope, pre-syncope or dyspnea on ex ertion Resp: Denies: dyspnea, productive cough or pain on inspiration GI: Reports: nausea and vomiting; Denies: abdominal pain, heartburn or diarrhea : Denies: flank pain, difficulty voiding, dysuria, urinary frequency, urinary urgency or urinary hesitancy Musc: Denies: neck pain, back pain, extremity pain, extremity swelling or joint pain Skin/Breast: Denies: rash Neuro: Reports: headache(s); Denies: numbness in extremities, weakness in extremities or sensory changes Endo: Reports: polydipsia PFSH ED PFSH: Medical History Asthma Chiari malformation Endometriosis (~1995) self reports surgical dx GERD (gastroesophageal reflux disease) Left groin pain No pertinent past medical history neghx: htn,dm,thyroid,dvt/pe PCP: Jena LEVINE Premature ovarian failure Surgical History History of brain surgery (~2018) tx of chiari History of laparoscopy (~1995) History of left oophorectomy (~2014) Hx of cholecystectomy (~2009) Hx of dilation and curettage (~2008) SAB Status post left inguinal hernia repair Family History Daughter Bleeding disorder Daughter with vonWillibrand Grandmother Breast cancer Paternal--dx age unknown Family/Other Breast cancer Paternal Aunt--dx age unknown Heart disease Paternal side in general Father Stroke Grandfather Stroke Paternal Other Clotting disorder Denies family history of Colon cancer Ovarian cancer Diabetes Hypercholesteremia Hypertension Uterine cancer Social History Smoking and tobacco status: never smoked Alcohol intake: never Substance/Drug Use: never Lives independently: Yes Marital status: service: Yes 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 Do you think of yourself as: Straight/Heterosexual Physical Exam Const: COMMON NORMALS: no acute distress, average body habitus, patient or iented x3, no limitations, healthy appearing, alert and well nourished GENERAL APPEARANCE: cooperative ORIENTATION/CONSCIOUSNESS: Yes awake, Yes o riented to person, Yes oriented to place and Yes oriented to time HENMT: COMMON NORMALS: normocephalic, atraumatic and TM's normal bilaterally HEAD & SCALP: normal to inspection, normocephalic and atraumatic FACE & SINUS: normal facial exam TYMPANIC MEMBRANE: TM's normal bilaterally Eye: COMMON NORMALS: Equal, round and reactive pupils present and EOMs intact bilaterally GENERAL EYE: appearance normal, both eyes and all related structures and normal light reflex PUPIL: Yes Equal, round and reactive pupils present DIRECT OPHTHALMOSCOPY: Yes normal light reflex Neck/C-Spine: COMMON NORMALS: full ROM, no lymphadenopathy, supple and no meningeal signs Chest: COMMONS NORMALS: normal inspection of the chest Resp: COMMON NORMALS: normal respiratory effort and clear to auscultation bilaterally AUSCULTATION: clear to auscultation bilaterally Cardio: COMMON NORMALS: regular rate and regular rhythm RATE: regular rate RHYTHM: regular rhythm GI: COMMON NORMALS: Normal to inspection, nondistended, normoactive bowel sounds present, Soft to palpation, non-tender, No hepatosplenomegaly present and no masses PALPATION: Yes Soft to palpation and Yes No hepatosplenomegaly present : COMMON NORMALS: Yes no CVA tenderness BLADDER/KIDNEY EXAM: Yes no CVA tenderness Back/Pelvis: COMMON NORMALS: no CVA tenderness and thoracic and lumbar spine normal to inspection Extremity: COMMON NORMALS: normal to inspection Neuro: COMMON NORMALS: patient oriented x3 SENSORIUM/ORIENTATION: Yes al ert, Yes oriented to person, Yes oriented to place and Yes oriented to time MENINGEAL SIGNS: Yes no meningeal signs Skin: COMMON NORMALS: no rashes or lesions noted GENERAL SKIN EXAM: no rashes or lesions noted Course Vital Signs: Vital signs: Vital Signs Temperature 98.1 F 05/13/23 21:10 Pulse Rate 102 H 05/13/23 21:10 Respiratory Rate 17 05/13/23 21:10 Blood Pressure 151/90 05/13/23 21:10 Pulse Oximetry 99 05/13/23 21:10 Oxygen Delivery Me thod Room Air 05/13/23 21:10 MDM - Nausea/Vomiting/Diarrhea Medical Decision Making Patient's work-up here is essentially unremarkable. Her head CT is negative. Patient received quite a bit of relief following the Reglan. She states her headache is much improved as well. Had initially ordered Imitrex but patient declines this and states she would like to go home as she feels better. Return ED precautions given. Lab Data 05/13/23 21:40 05/13/23 21:[address] 05/13/23 21:49 IMPRESSION: 1. No acute intracranial findings. 2. Other chronic/incidental findings as described above. Laboratory Results WBC 6.29 10^3/uL (3.29-11.43) 05/13/23 21:40 RBC 4.13 10^6/uL (3.85-5.65) 05/13/23 21:40 Hgb 12.50 g/dL (11.27-16.99) 05/13/23 21:40 Hct 38.6 % (36-47) 05/13/23 21:40 MCV 93.5 fl (85-98) 05/13/23 21:40 MCH 30.3 pg (27-33) 05/13/23 21:40 MCHC 32.4 g/dL (30-55) 05/13/23 21:40 RDW 13.9 % (12.1-15.1) 05/13/23 21:40 Plt Count 293 10^3/cmm (157-399) 05/13/23 21:40 MPV 9.2 fL (7.4-10.4) 05/13/23 21:40 Neut % (Auto) 78.2 % 05/13/23 21:40 Lymph % (Auto) 14.5 % 05/13/23 21:40 Kaufman % (Auto) 6.8 % 05/13/23 21:40 Eos % (Auto) 0.0 % 05/13/23 21:40 Baso % (Auto) 0.2 % 05/13/23 21:40 Neut # (Auto) 4.92 10^3/uL (1.8-7.7) 05/13/23 21:40 Lymph # (Auto) 0.9 10^3/uL (0.8-4.8) 05/13/23 21:40 Kaufman # (Auto) 0.4 10^3/uL (0.2-0.9) 05/13/23 21:40 Eos # (Auto) 0.0 10^3/uL (0.0-0.8) 05/13/23 21:40 Baso # (Auto) 0.0 10^3/uL (0.0-0.1) 05/13/23 21:40 Nucleated RBC % (auto) 0 % 05/13/23:40 Nucleated RBCs # 0.0 /100WBC 05/13/23 21:40 Sodium 144 mmol/L (136-145) 05/13/23 21:40 Potassium 4.2 mmol/L (3.5-5.1) 05/13/23 21:40 Chloride 104 mmol/L (98-107) 05/13/23 21:40 Carbon Dioxide 28 mmol/L (22-29) 05/13/23 21:40 Anion Gap 16.2 (5-19) 05/13/23 21:40 BUN 20 mg/dL (6-20) 05/13/23 21:40 Creatinine 0.8 mg/dL (0.5-0.9) 05/13/23 21:40 GFR Calculation 76.9 mL/min (90-130) L 05/13/23 21:40 Glucose 126 mg/dL (65-115) H 05/13/23 21:40 Calculated Osmolality 302 mOsm/kg (285-295) H 05/13/23 21:40 Calcium 10.1 mg/dL (8.5-10.5) 05/13/23 21:40 Total Bilirubin 0.3 mg/dL (0.15-1.2) 05/13/23 21:40 AST 31 U/L (0-32) 05/13/23 21:40 ALT 38 U/L (0-33) H 05/13/23 21:40 Alkaline Phosphatase 132 U/L (35-105) H 05/13/23 21:40 Total Protein 8.0 g/dL (6.6-8.7) 05/13/23 21:40 Albumin 5.1 g/dL (3.5-5.2) 05/13/23 21:40 Globulin 2.9 g/dL (1.3-4.6) 05/13/23 21:40 Lipase 15 U/L (13-60) 05/13/23 21:40 HCG, Qual Negative (Negative) 05/13/23 21:40 All radiology interpretation(s) finalized by discharge Discharge Plan Discharge Patient Disposition: Home Clinical Impression: Nausea and vomiting Qualifiers: Vomiting type: unspecified Qualified Code(s): R11.2 - Nausea with vomiting, unspecified Condition: Stable Prescriptions: New metoclopramide HCl 10 mg tablet 10 mg PO Q6H PRN (Reason: nausea and vomiting) Qty: 14 0RF No Action budesonide-formoterol [Symbicort] 160-4.5 mcg/actuation HFA aerosol inhaler 2 puff inhalation BID fluticasone propionate [Flonase Allergy Relief] 50 mcg/actuation spray,suspension 1 spray intranasal BID Qty: 15.8 3RF Rx Instructions: administer into each nostril sumatriptan succinate 50 mg tablet 50 mg PO Q2H PRN (Reason: Migraine Headache) Rx Instructions: do not exceed 4 doses per 24 hrs (DME) Custom Molded Orthotics See Rx Instructions .Route .MEDSUPPLY Qty: 1 0RF Rx Instructions: As directed by [facility] Physical Therapy Department- I am requesting authorization to perform molds of her feet in podiatry clinic at [facility] and for custom orthotics to be manufactured through [facility] physical therapy department to treat Plantar Fasciitis bilaterally and Left Achilles Tendinitis on this patient. Would require authorization for custom molded orthotics L code 3030 and dispensing through physical therapy CPT code 15748 Spiriva Respimat 1.25 mcg/actuation mist 2 puff INHALATION DAILY azelastine 137 mcg (0.1 %) aerosol,spray 2 spray INTRANASAL BID 90 Days Qty: 30 3RF Rx Instructions: administer into each nostril famotidine 40 mg tablet 40 mg PO BID Emgality Pen 120 mg/mL pen injector 120 mg SUBCUT ONCE Qty: 1 3RF Rx Instructions: Once monthly (DME) CAM Boot See Rx Instructions .Route .MEDSUPPLY Qty: 1 0RF Rx Instructions: As directed (DME) Low Profile Carbon Fiber Sport Orthotics See Rx Instructions .Route .MEDSUPPLY Qty: 1 0RF Rx Instructions: As directed by [facility] hydrocodone-acetaminophen 5-325 mg tablet 1 tab PO Q6H PRN (Reason: pain) Qty: 20 0RF prednisone 20 mg tablet 20 mg PO TID Qty: 15 0RF Rx Instructions: 1 p.o. 3 times daily x3 days, 1 p.o. twice daily x2 days, 1 p.o. daily x2 days diclofenac sodium 75 mg tablet,delayed release (DR/EC) 75 mg PO Q12H PRN (Reason: pain) Qty: 20 0RF Discharge Orders: Discharge ED (Routine); Ordered 05/13/23 Ordered By: Delilah Max Referrals: Noris Hatfield FNP [Primary Care Provider] - Coding Level of Care Code ED Programming Director for Sukumar Santana
[2023-05-13 22:11] LABS: Alanine Aminotransferase 38 U/L (0-33); Albumin Level 5.1 g/dL (3.5-5.2); Alkaline Phosphatase 132 U/L (35-105); Anion Gap 16.2 (5-19); Aspartate Amino Transferase 31 U/L (0-32); Blood Urea Nitrogen 20 mg/dL (6-20); Calcium 10.1 mg/dL (8.5-10.5); Carbon Dioxide 28 mmol/L (22-29); Chloride 104 mmol/L (98-107); Globulin 2.9 g/dL (1.3-4.6); Glomerular Filtration Rate 76.9 mL/min (90-130); Glucose 126 mg/dL (65-115); Lipase 15 U/L (13-60); Osmolality Calculated 302 mOsm/kg (285-295); Potassium 4.2 mmol/L (3.5-5.1); Sodium 144 mmol/L (136-145); Total Bilirubin 0.3 mg/dL (0.15-1.2)
[2023-05-13] MEDS: sodium chloride 0.9% 1,000 ML 999 ML IV (22:11)
[2023-05-13] MEDS: metoclopramide 5 mg/mL SDV 2 mL 10 MG IVP (22:12)
[2023-05-13 22:16] LABS: HCG, Serum Qual Negative (Negative)
== END 2023-05-13 23:45 | disposition home or self-care (01) ==
PROVIDERS: Emergency Provider Physician Assistant; PCP Nurse Practitioner
DX: R11.2 Nausea with vomiting, unspecified (principal)
CPT/HCPCS: 36415; 70450; 80053; 83690; 84703; 85025; 96374; 99285; J2765; J7030

== ENCOUNTER → 2023-05-27 11:35 | Outpatient (BNVA) | payer OTHER, SELFPAY | PROVIDERS: PCP Nurse Practitioner; Visit Provider Podiatrist Foot & Ankle Surgery | DX: S92.302D Fracture of unspecified metatarsal bone(s), left foot, subsequent encounter for fracture with routine healing; X58.XXXD Exposure to other specified factors, subsequent encounter | CPT/HCPCS: 73630; 99213 ==

== ENCOUNTER → 2023-11-20 08:11 | Outpatient (BNVA) | payer OTHER, SELFPAY | PROVIDERS: PCP Nurse Practitioner; Visit Provider Podiatrist Foot & Ankle Surgery | DX: M79.671 Pain in right foot; G57.61 Lesion of plantar nerve, right lower limb | CPT/HCPCS: 64455; 73630; J1100; J3301; J3490 ==

== ENCOUNTER 2023-11-26 10:03 | Outpatient (CLI) | payer OTHER, SELFPAY ==
--- NOTE | 2023-11-26 10:08 | MR_ITS ---
WS: [id number] EXAMINATION: MR wrist RT wo con* [id number] ORDER DATE: 11/26/2023 10:08 AM COMPARISON: Radiograph 10/22/2023 HISTORY: PAIN CONTRAST: None. TECHNIQUE: Axial T1, axial T2 fat sat, coronal T1, coronal proton density fat sat, coronal STIR, duncan nal 3D, and sagittal T1 performed. FINDINGS: No visualized fractures in the area of concern between the second and third metacarpal joints. Cystic degenerative changes involve the proximal and distal carpal row. Normal bone marrow signal in the sc aphoid. No acute appearing scaphoid fractures. Cystic degenerative changes involve the proximal and d istal carpal row. Normal scapholunate interval. Mild degenerative narrowing radiocarpal joint. Normal ulna. Normal ulnar styloid. Normal DRUJ. Normal extensor retinaculum. Normal extensor carpi ul naris. Normal carpal tunnel. Tiny ganglion cysts volar intercarpal ligament adjacent to the pisiform and flexor pollicis longus both measuring approximately 3 to 4 mm. Normal TFCC. No other suspicious f indings. IMPRESSION: 1. No suspicious abnormalities in the area of concern from the prior radiograph. 2. No acute fractures. Normal scaphoid and lunate. 3. Small ganglion cysts along the volar intercarpal ligament described above.
== END 2023-11-26 10:04 | disposition home or self-care (01) ==
LOC: RAD 10:03
PROVIDERS: PCP Nurse Practitioner; Visit Provider Nurse Practitioner Family
DX: M25.531 Pain in right wrist (principal); M71.331 Other bursal cyst, right wrist
CPT/HCPCS: 73221

== ENCOUNTER → 2023-12-17 07:50 | Outpatient (BNVA) | payer OTHER, SELFPAY | PROVIDERS: PCP Nurse Practitioner; Visit Provider Student in an Organized Health Care Education/Training Program | DX: S63.501A Unspecified sprain of right wrist, initial encounter (principal); X58.XXXA Exposure to other specified factors, initial encounter | CPT/HCPCS: 20600; 99204; J3301; J3490 ==

== ENCOUNTER → 2023-12-18 08:43 | Outpatient (BNVA) | payer OTHER, SELFPAY | PROVIDERS: PCP Nurse Practitioner; Visit Provider Podiatrist Foot & Ankle Surgery | DX: G57.61 Lesion of plantar nerve, right lower limb | CPT/HCPCS: 64455; J1100; J3301; J3490 ==

== ENCOUNTER → 2024-01-29 08:45 | Outpatient (BNVA) | payer OTHER, SELFPAY | PROVIDERS: Visit Provider Podiatrist Foot & Ankle Surgery | DX: G57.61 Lesion of plantar nerve, right lower limb (principal) | CPT/HCPCS: 64455; J1100; J3301; J3490 ==

== ENCOUNTER → 2024-03-18 09:03 | Outpatient (BNVA) | payer OTHER, SELFPAY | PROVIDERS: PCP Nurse Practitioner; Visit Provider Podiatrist Foot & Ankle Surgery | DX: G57.61 Lesion of plantar nerve, right lower limb | CPT/HCPCS: 64455; J1100; J3301; J3490 ==

== ENCOUNTER 2024-04-21 14:15 | Outpatient (CLI) | payer OTHER, SELFPAY ==
--- NOTE | 2024-04-21 14:00 | MR_ITS ---
WS: [id number] MRI HEAD WITH CONTRAST TECHNIQUE: Sagittal T1, T2 axial, T2 axial FLAIR, axial susceptibility weighted imaging, axial diffus ion weighted images, and coronal T2 images were obtained. Pre and post-T1 axial and post T1 coronal i mages. ADC and FSPGR images. CLINICAL INFORMATION: VISION CHANGES/PARETHESIA OF SKIN COMPARISON: CT head 05/13/2023 FINDINGS: Prior postoperative changes craniectomy with cranioplasty for Chiari decompression. This is unchanged compared to the prior CT. No hydrocephalus. Brainstem signal is normal. Cerebellar tonsils are uncha nged in appearance. Normal fourth ventricle. No restricted diffusion to suggest acute ischemia. Ventricular system and basal cisterns are patent. Incidental perivascular space in the LEFT basal ganglia. 2 or 3 tiny foci of T2 hyperintensity in the subcortical white matter of doubtful clinical significance but can be seen with migraine headaches. Normal vascular flow voids at the skull base. No extra-axial fluid collections. No evidence of mass o r mass effect. Paranasal sinuses and mastoid air cells are well aerated. Normal posterior nasopharynx . No abnormal gadolinium enhancement. Normal optic chiasm and pituitary infundibulum. No other suspicio us findings. MR/MR head wo/w con [id number] IMPRESSION: Some images degraded by motion 1. No evidence of restricted diffusion to suggest acute ischemia. 2. Prior postoperative Chiari decompression. This is unchanged in appearance c ompared to the prior examinations. 3. No hydrocephalus. 4. Brainstem signal is normal. 5. No other acute findings.
[2024-04-21] MEDS: gadobenate dimeglumine 20 mL vial 14 ML IV (15:29)
== END 2024-04-21 14:16 | disposition home or self-care (01) ==
LOC: RAD 14:15
PROVIDERS: PCP Nurse Practitioner; Visit Provider Nurse Practitioner
DX: Z87.798 Personal history of other (corrected) congenital malformations (principal); Z98.890 Other specified postprocedural states; Q07.00 Arnold-Chiari syndrome without spina bifida or hydrocephalus
CPT/HCPCS: 70553; A9577

== ENCOUNTER → 2024-10-19 12:41 | Outpatient (BNVA) | payer OTHER, SELFPAY | PROVIDERS: PCP Nurse Practitioner; Visit Provider Podiatrist Foot & Ankle Surgery | DX: G57.61 Lesion of plantar nerve, right lower limb (principal); G57.62 Lesion of plantar nerve, left lower limb; S82.891D Other fracture of right lower leg, subsequent encounter for closed fracture with routine healing; X58.XXXD Exposure to other specified factors, subsequent encounter | CPT/HCPCS: 64455; 73610; 99213; J1100; J3301; J3490 ==

== ENCOUNTER 2024-10-26 12:52 | Outpatient (CLI) | payer OTHER, SELFPAY ==
--- NOTE | 2024-10-26 13:00 | MR_ITS ---
WS: [id number] MRI RIGHT ANKLE WITHOUT CONTRAST. COMPARISON: 10/19/2024 Multiplanar, multisequence imaging is performed without contrast. Focal osteochondral lesion surrounded by edema involving the medial talar dome. The osseous defect measures 3 x 5 mm. Surrounding edema measures 8 x 14 mm. There is a tiny amount of edema in the lateral tibial plateau also with a tiny osteochondral defect. No intra-articular loose body is identified. No joint effusion. Achilles tendon is normal. Normal plantar aponeurosis. Normal appearance of the midfoot. Peroneal brevis and longus are appropriate. Flexor hallucis longus and flexor digitorum longus are appropriate. Normal size posterior tibialis tendon. Extensor tendons are normal. Normal ankle syndesmosis. Anterior inferior and posterior inferior tibiofibular ligaments are normal. Anterior talofibular ligament is small caliber with intermediate signal. No full-thickness tear. Posterior talofibular ligament is normal. Fibulocalcaneal ligament is normal. Normal sinus Tarsi. MR/MR ankle RT wo con* [id number] IMPRESSION: 1. Osteochondral defect measuring 3 x 5 mm on the medial talar dome surrounded by marrow edema. 2. Additional very tiny osteochondral defect along the lateral talar dome. 3. No joint effusion or intra-articular loose body. 4. Heterogeneous signal and small caliber anterior talofibular ligament. May b e from a prior injury. 5. No tendon abnormality.
== END 2024-10-26 12:53 | disposition home or self-care (01) ==
PROVIDERS: PCP Nurse Practitioner; Visit Provider Podiatrist Foot & Ankle Surgery
DX: M93.271 Osteochondritis dissecans, right ankle and joints of right foot (principal); R93.6 Abnormal findings on diagnostic imaging of limbs
CPT/HCPCS: 73721

== ENCOUNTER → 2024-11-16 12:53 | Outpatient (BNVA) | payer OTHER, SELFPAY | PROVIDERS: PCP Nurse Practitioner; Visit Provider Podiatrist Foot & Ankle Surgery | DX: S99.911A Unspecified injury of right ankle, initial encounter (principal); M93.271 Osteochondritis dissecans, right ankle and joints of right foot; X58.XXXA Exposure to other specified factors, initial encounter | CPT/HCPCS: 99214 ==

== ENCOUNTER → 2024-12-01 08:47 | Outpatient (BNVA) | payer OTHER, SELFPAY | PROVIDERS: PCP Nurse Practitioner; Visit Provider Internal Medicine | DX: R53.83 Other fatigue (principal); N80.9 Endometriosis, unspecified; E28.39 Other primary ovarian failure; F43.10 Post-traumatic stress disorder, unspecified; R68.82 Decreased libido | CPT/HCPCS: 99205 ==

== ENCOUNTER → 2024-12-14 13:12 | Outpatient (BNVA) | payer OTHER, SELFPAY | PROVIDERS: PCP Nurse Practitioner; Visit Provider Podiatrist Foot & Ankle Surgery | DX: M93.271 Osteochondritis dissecans, right ankle and joints of right foot (principal); S99.911D Unspecified injury of right ankle, subsequent encounter; X58.XXXD Exposure to other specified factors, subsequent encounter | CPT/HCPCS: 73610; 99214 ==

== ENCOUNTER 2025-01-18 10:46 | Outpatient (CLI) | payer OTHER, SELFPAY ==
--- NOTE | 2025-01-18 11:00 | MR_ITS ---
WS: [id number] MRI RIGHT ANKLE WITHOUT CONTRAST. COMPARISON: Prior MRI 10/26/2024 and radiographs 12/14/2024. Multiplanar, multisequence imaging is performed without contrast. History: Follow-up prior MRI. Twisting injury, persistent pain. Osteochondral defect along the medial talar dome with surrounding edema is reidentified. The osteochondral defect measures 4 x 4 mm and is slightly more conspicuous than on the prior study. The amount of marrow edema surrounding the defect has not improved. The smaller osteochondral lesion involving the lateral talar dome is reidentified with a tiny central cortical defect measuring 5 x 5 mm. The lateral talar dome osteochondral defect appears more pronounced. No loose body. Distal tibia and fibula are normal. Calcaneus is normal. Achilles tendon is normal. There is fluid in the distal syndesmosis. The amount of fluid appears more than typically noted. The anterior inferior and posterior inferior tibiofibular ligaments are intact. There is fluid adjacent to the anterior inferior ligament but no tear identified. This is also the level of the osteochondral defect in the lateral talar dome. There is fluid adjacent to the anterior talofibular ligament and the posterior talofibular ligament. There is no full-thickness tear. The ligament is better visualized on today's MRI. If there is a tear it is an incomplete partial tear. Calcaneofibular ligament is normal. Deltoid ligament is normal. Peroneal tendons are normal. Flexor hallucis longus, flexor digitorum longus and the posterior tibialis tendon are normal. Extensor tendons are normal. No soft tissue mass or edema. MR/MR ankle RT wo con* [id number] IMPRESSION: 1. Reidentified are medial and lateral talar dome osteochondral defects. 2. Osteochondral defect on the medial talar dome measures 4 x 4 mm and is surr ounded by marrow edema. No improvement. The central osteochondral lesion appear s more conspicuous but not increased in size. 3. Osteochondral defect in the lateral talar dome is more conspicuous with sli ghtly greater edema surrounding the defect. 4. Small amount of fluid in the syndesmosis. The adjacent ligaments are normal . The fluid may be associated with the osteochondral defect in the lateral lowell r dome. 5. Small caliber but intact anterior talofibular ligament. There may be a part ial chronic tear. No full-thickness tear.
== END 2025-01-18 10:47 | disposition home or self-care (01) ==
PROVIDERS: PCP Nurse Practitioner; Visit Provider Podiatrist Foot & Ankle Surgery
DX: M93.271 Osteochondritis dissecans, right ankle and joints of right foot (principal); S99.911A Unspecified injury of right ankle, initial encounter; X50.1XXA Overexertion from prolonged static or awkward postures, initial encounter
CPT/HCPCS: 73721

== ENCOUNTER → 2025-01-25 14:07 | Outpatient (BNVA) | payer OTHER, SELFPAY | PROVIDERS: PCP Nurse Practitioner; Visit Provider Podiatrist Foot & Ankle Surgery | DX: S99.911D Unspecified injury of right ankle, subsequent encounter (principal); M93.271 Osteochondritis dissecans, right ankle and joints of right foot; X58.XXXD Exposure to other specified factors, subsequent encounter | CPT/HCPCS: 99213 ==

== ENCOUNTER → 2025-03-01 12:21 | Outpatient (BNVA) | payer OTHER, SELFPAY | PROVIDERS: PCP Nurse Practitioner; Visit Provider Podiatrist Foot & Ankle Surgery | DX: G57.61 Lesion of plantar nerve, right lower limb (principal) | CPT/HCPCS: 64455; J1100; J3301; J3490 ==